=== PATIENT | male | born 1950 | race Caucasian/White ===

== ENCOUNTER → 2016-11-07 | Outpatient (CLI) | payer MEDICARE, BC ==
[2015-08-25 14:27] VITALS: BP 138/75
[~2016-11-07] MED LIST: FAMO40TA4 PO; FLUT12AE IH; FLUT16SP NS; IPRA3AMP IH; OMEG500C3 PO; PROVENTIL HFA6.7 GM IH; TAMS0.4C2 PO; UBID100C12 PO; VITA10004 PO
--- NOTE | 2016-11-08 10:30 | SLEEP ---
DATE OF STUDY: 11/07/2016 ATTENDING PHYSICIAN: Dr. Mims. The patient is 65 years old who weighs 190 pounds with a BMI of 28. The patient's [place] score was 7. A split night study was performed at [facility]. During the night study, the patient spent 424 minutes in bed and slept for 370 minutes with a sleep efficiency of 87%. Sleep latency was 5 minutes with a REM latency of 121 minutes. Overall, sleep architecture showed increased stage I and stage II sleep, normal slow wave and reduced REM sleep. During the initial diagnostic portion of the study, the patient slept for 157 minutes. During this time, there were no obstructive mixed or central apneas. There were 45 hypopneas. The patient's apnea hypopnea index was 17 per hour. Supine index of 2 per hour and REM index of 36 per hour. Review of nocturnal oximetry study revealed that the patient's oxygen saturations remained above 88% throughout with the lowest of 85%. EKG monitoring revealed no sustained arrhythmias. Normal sinus rhythm. PLMS were not seen. The patient met the criteria for CPAP initiation. It was started at 5 cm of water and titrated up to 9 cm of water. At the final pressure, the patient had 71 minutes of sleep. AHI was reduced to 1 per hour. The patient had supine as well as REM sleep. Oxygen saturation remained above 90%. The patient used a small sized nasal mask. IMPRESSION: 1. Moderate sleep apnea-hypopnea syndrome with worsening during REM sleep. Total AHI 17 per hour with a REM AHI of 36 per hour. 2. Mild nocturnal hypoxia secondary to obstructive sleep apnea, but resolved with CPAP. 3. No clinically significant periodic limb movements of sleep. RECOMMENDATIONS: 1. CPAP at 9 cm water completely eliminated the patient's sleep apnea and should be used on a nightly basis. 2. Follow up in 4-6 weeks to assess compliance with CPAP and to document clinical improvement. 3. Weight loss is advised. 4. Avoid [employer] depressants. 5. Caution regarding driving until symptoms of sleep apnea resolve with the use of CPAP. JATIN LEMOS MD DR: DAVID/emma JOB#: [id number] / [id number] Spencer Bravo
== END | disposition home or self-care (01) ==
LOC: SLPLAB 18:23
PROVIDERS: ATTEND Family Medicine
DX: G47.33 Obstructive sleep apnea (adult) (pediatric) (principal)
CPT/HCPCS: 95810

== ENCOUNTER 2019-01-20 02:30 | Inpatient (IN) | payer MEDICARE ==
[~2019-01-20] VITALS: Ht 182.9 cm; Wt 86.2 kg
[~2019-01-20 02:30] MED LIST changes: +ALBU2.5V8 IH; -IPRA3AMP IH; +IPRA3AMP29 IH; -PROVENTIL HFA6.7 GM IH; -UBID100C12 PO; +UBID100C40 PO; +VITA100022 PO; -VITA10004 PO
[2019-01-20 03:10] LABS: BASO % 0 % (0-3); EOS % 0 % (0-3); HEMATOCRIT 42.9 % (39.0-53.0); HEMOGLOBIN 14.4 g/dL (13.0-17.5); LYMPH # 0.8 x10^3/uL (1.0-4.8); LYMPH % 6 % (24-48); MEAN CORPUSCULAR HEMOGLOBIN 32 pg (25-35); MEAN CORPUSCULAR HGB CONC 34 g/dL (31-37); MEAN CORPUSCULAR VOLUME 95 fL (79-100); MONO # 1.1 x10^3/uL (0.0-1.1); MONO % 8 % (0-9); NEUT # 11.4 x10^3uL (1.8-7.7); NEUT % 85 % (31-73); PLATELET COUNT 170 x10^3/uL (140-400); RED BLOOD COUNT 4.53 x10^6/uL (4.30-5.70); WHITE BLOOD COUNT 13.4 x10^3/uL (4.0-11.0)
[2019-01-20] MEDS ORDERED: IV NORMAL SALINE 1000ML BAG 1,000 ML IV ONE ×2 (03:15→04:00)
[2019-01-20 03:23] LABS: PROTHROMBIN TIME PATIENT 14.9 SEC (11.7-14.0)
[2019-01-20 03:28] LABS: CALCIUM 8.6 mg/dL (8.5-10.1); CREATININE 1.3 mg/dL (0.7-1.3); GFR 54.7; POTASSIUM 3.5 mmol/L (3.5-5.1)
[2019-01-20 03:31] LABS: ALBUMIN 3.7 g/dL (3.4-5.0); ALBUMIN/GLOBULIN RATIO 0.9 (1.0-1.7); MAGNESIUM 2.1 mg/dL (1.8-2.4); TOTAL BILIRUBIN 0.4 mg/dL (0.2-1.0); TOTAL PROTEIN 7.7 g/dL (6.4-8.2)
[2019-01-20] MEDS ORDERED: fentaNYL PF VIAL 100 MCG/2 ML VIAL IV PRN (03:45)
[2019-01-20] MEDS ORDERED: cefTRIAXone IV Push 1 GM VIAL. IVP ONE (04:00)
[2019-01-20] MEDS ORDERED: DOXYCYCLINE HYCLATE 100 MG in IV DEXTROSE 5% 100ML 100 ML IV ONE (04:00)
[2019-01-20] MEDS ORDERED: ACETAMINOPHEN 500 MG TABLET PO ONE (04:00)
--- NOTE | 2019-01-20 04:09 | PHYS DOC ---
Past Medical History Past Medical History: Asthma Additional Past Medical Histor: EARLY ONSET DEMENTIA Past Surgical History: Other Additional Past Surgical Histo: PARTIAL THYROID Alcohol Use: Occasionally Additional Information: PT. STATES HE DRINKS EVERY OTHER DAY Drug Use: None Adult General Chief Complaint Chief Complaint: DIZZY/LIGHT HEADED HPI HPI Patient is a febrile 68 year old male who presents with dizziness and weakness with a fall. His reports she heard him wake up around 130 am and subsequently heard a loud fall from the patient falling and hitting the bathroom tub. He is unsure if he lost consciousness or not. His states that a large puddle of urine was next to his bed that occurred shortly before his fall. He also reports a feeling of profound weakness. For 10 days the patient was at a [place]iron with friends (*located somewhere in [place] of [place], [place]) in which they were doing water sports, drinking alcohol, and other outdoor activities. The patients then reported that he had found a tick in his righ t groin region and removed it this past sunday (January 18 2019). The pt states the tick was large and black in color when he removed it successfully. The next day (friday 01/19) he complained to his of pain at the site of his tick bite. Pt admits to headache and feeling feverish. He denies chest pain, shortness of breath, visual changes, and sick contacts. Review of Systems Review of Systems Constitutional: Admits fever or chills Eyes: Denies change in visual acuity, redness, or eye pain HENT: Denies nasal congestion or sore throat Respiratory: Denies cough or shortness of breath Cardiovascular: No additional information not addressed in HPI GI: Denies abdominal pain, nausea, vomiting, bloody stools or diarrhea : Denies dysuria or hematuria Musculoskeletal: Denies back pain. Admits to profound weakness Integument: Admits skin lesion in right groin at location of the tick bite. Neurologic: Admits headache, Denies focal weakness or sensory changes [] Endocrine: Denies polyuria or polydipsia [] All other systems were reviewed and found to be within normal limits, except as documented in this note. Current Medications Current Medications Current Medications Medications (Trade) Dose Ordered Sig/Do Start Time Stop Time Status Last Admin Dose Admin Acetaminophen (Tylenol) 1,000 mg 1X ONCE 01/20/19 04:00 01/20/19 04:01 DC 01/20/19 04:09 1,000 MG Ceftriaxone Sodium (Rocephin) 1 gm 1X ONCE 01/20/19 04:00 01/20/19 04:01 DC 01/20/19 04:13 1 GM Doxycycline Hyclate 100 mg/ Dextrose 100 ml @ 50 mls/hr 1X ONCE 01/20/19 04:00 01/20/19 05:59 01/20/19 04:14 50 MLS/HR Fentanyl Citrate (Fentanyl 2ml Vial) 50 mcg PRN Q1HR PRN 01/20/19 03:45 01/21/19 03:44 Sodium Chloride 500 ml @ 500 mls/hr 1X ONCE 01/20/19 04:30 01/20/19 05:29 01/20/19 04:26 500 MLS/HR Vancomycin HCl (Vanco Per Pharmacy) 1 each PRN DAILY PRN 01/20/19 03:45 Allergies Allergies Allergies Coded Allergies Type Severity Reaction Last Updated Verified aspirin Allergy Severe Hives 08/25/15 Yes ibuprofen Allergy Severe Hives 08/25/15 Yes Physical Exam Physical Exam Constitutional: Well developed, well nourished, mild distress, toxic appearing HENT: Normocephalic, atraumatic, bilateral external ears normal, oropharynx moist, no oral exudates, nose normal. Eyes: PERRLA, EOMI, conjunctiva normal, no discharge. Neck: Normal range of motion, no tenderness, supple, no stridor. Cardiovascular:Heart rate regular rhythm. No definite murmur Lungs & Thorax: Bilateral breath sounds clear to auscultation Abdomen: Bowel sounds normal, soft, no tenderness, no masses, no pulsatile ma sses. [ Skin: Warm, dry. Erythematous, indurated lesion at site of tick bite with streaking. Tender, 3-4 cm lymphadenopathy in the right inguinal region. No signs of rash on palms, soles, wrists or ankles. Back: No tenderness, no CVA tenderness. Extremities: No tenderness, no cyanosis, no clubbing, ROM intact, no edema. [ Neurologic: Alert and oriented X 3, normal motor function, normal sensory function, no focal deficits noted. CN II-XII grossly intact b/l. Current Patient Data Vital Signs Vital Signs Date Time Temp Pulse Resp B/P (MAP) Pulse Ox O2 Delivery O2 Flow Rate FiO2 01/20/19 02:30 99.9 111 16 141/74 (96) 92 Room Air 99.9 Lab Values Laboratory Tests Test 01/20/19 02:49 01/20/19 02:50 Glucose (Fingerstick) 160 mg/dL (70-99) H White Blood Count 13.4 x10^3/uL (4.0-11.0) H Red Blood Count 4.53 x10^6/uL (4.30-5.70) Hemoglobin 14.4 g/dL (13.0-17.5) Hematocrit 42.9 % (39.0-53.0) Mean Corpuscular Volume 95 fL (79-100) Mean Corpuscular Hemoglobin 32 pg (25-35) Mean Corpuscular Hemoglobin Concent 34 g/dL (31-37) Red Cell Distribution Width 15.0 % (11.5-14.5) H Platelet Count 170 x10^3/uL (140-400) Neutrophils (%) (Auto) 85 % (31-73) H Lymphocytes (%) (Auto) 6 % (24-48) L Monocytes (%) (Auto) 8 % (0-9) Eosinophils (%) (Auto) 0 % (0-3) Basophils (%) (Auto) 0 % (0-3) Neutrophils # (Auto) 11.4 x10^3uL (1.8-7.7) H Lymphocytes # (Auto) 0.8 x10^3/uL (1.0-4.8) L Monocytes # (Auto) 1.1 x10^3/uL (0.0-1.1) Eosinophils # (Auto) 0.0 x10^3/uL (0.0-0.7) Basophils # (Auto) 0.0 x10^3/uL (0.0-0.2) Platelet Estimate Pending Prothrombin Time 14.9 SEC (11.7-14.0) H Prothrombin Time INR 1.2 (0.8-1.1) H Sodium Level 139 mmol/L (136-145) Potassium Level 3.5 mmol/L (3.5-5.1) Chloride Level 102 mmol/L (98-107) Carbon Dioxide Level 27 mmol/L (21-32) Anion Gap 10 (6-14) Blood Urea Nitrogen 19 mg/dL (8-26) Creatinine 1.3 mg/dL (0.7-1.3) Estimated GFR (Cockcroft-Gault) 54.7 BUN/Creatinine Ratio 15 (6-20) Glucose Level 148 mg/dL (70-99) H Lactic Acid Level 2.5 mmol/L (0.4-2.0) H Calcium Level 8.6 mg/dL (8.5-10.1) Magnesium Level 2.1 mg/dL (1.8-2.4) Total Bilirubin 0.4 mg/dL (0.2-1.0) Aspartate Amino Transferase (AST) 33 U/L (15-37) Alanine Aminotransferase (ALT) 32 U/L (16-63) Alkaline Phosphatase 57 U/L (46-116) Creatine Kinase 566 U/L (39-308) H Troponin I Quantitative < 0.017 ng/mL (0.000-0.055) MS-Vpw-G-Type Natriuretic Peptide 260 pg/mL (0-124) H Total Protein 7.7 g/dL (6.4-8.2) Albumin 3.7 g/dL (3.4-5.0) Albumin/Globulin Ratio 0.9 (1.0-1.7) L Lipase 69 U/L (73-393) L Ethyl Alcohol Level < 10 mg/dL (0-10) Laboratory Tests 01/20/19 02:50 Laboratory Tests 01/20/19 02:50 EKG EKG []Sinus rhythm rate of 110 no acute ischemic changes noted interpreted by me time of encounter Radiology/Procedures Radiology/Procedures [] Impressions: IMPRESSION: 1. No acute intracranial hemorrhage. 2. Scattered regions of low attenuation within the white matter. Non-specific in nature but frequently secondary to chronic small vessel ischemic disease. 3. Prominence of ventricles and sulci which is frequently secondary to age related volume loss. Another possible cause would include normal pressure hydrocephalus. 4. Partial opacification of paranasal sinuses which could be from congestion or sinusitis. Electronically signed by: Christ Escobar MD (01/20/2019 4:21 AM) [facility] Course & Med Decision Making Course & Med Decision Making Pertinent Labs and Imaging studies reviewed. (See chart for details) [Pt is a febrile 68 year old male presenting with dizziness, weakness, and a mechanical fall. He states he removed a large tick in his right groin on Sunday after spending 10 days camping/boating [place] a [place], [place]. There is an erythematous, indurated lesion at the tick bite location with 3- 4 cm tender lymphadenopathy in the right inguinal region. He is AAOx3, has no focal motor deficits, and cranial nerves II-XII are grossly intact b/l. He has signs of dehydration with dry, cracked lips and mouth which could have contributed to his dizziness that led to a fall. Given his recent camping trip, fever, headache weakness and the indurated lesion w/ tender lymphadenopathy a the site of his tick bite, a tick-borne illness seems most likely. However, he is unsure if he lost consciousness or hit his head and he reports a headache. A CT scan w/out contrast was ordered to r/o an acute intracranial pathology.Doxycycline and ceftriaxone were prescribed and given to cover the most common tick-born illnesses until blood cultures return.] Lactic acid was mildly elevated we'll refer repeatedly or the fluid sepsis fluid bolus blood pressure remained stable in the emergency room. Neck is supple patient is alert doubt meningitis. Dragon Disclaimer Dragon Disclaimer This electronic medical record was generated, in whole or in part, using a voice recognition dictation system. Departure Departure Impression: Primary Impression: Sepsis Additional Impression: Tick bite Disposition: ADMITTED INPATIENT Admitting Physician: SHELBI Condition: STABLE Referrals: TANYA GARCIA (PCP) Problem Qualifiers GERRY DC MD Jan 20, 2019 04:09
--- NOTE | 2019-01-20 04:23 | RAD ---
INDICATION: Altered mental status COMPARISON: None. TECHNIQUE: Axial CT images obtained through the head without intravenous contrast. One or more of the following individualized dose reduction techniques were utilized for this examination: 1. Automated exposure control; 2. Adjustment of the mA and/or kV according to patient size; 3. Use of iterative reconstruction technique. FINDINGS: No intracranial hemorrhage. No midline shift. Basal cisterns patents. Ventricles and sulci are globally prominent. No acute osseous abnormality. Opacification of frontal sinus as well as portion of ethmoid sinus. Small amount of fluid in the right maxillary sinus with postoperative changes to the medial wall of the maxillary sinuses as well as the ethmoid air cells. Scattered foci of low attenuation within the white matter. IMPRESSION: 1. No acute intracranial hemorrhage. 2. Scattered regions of low attenuation within the white matter. Non-specific in nature but frequently secondary to chronic small vessel ischemic disease. 3. Prominence of ventricles and sulci which is frequently secondary to age related volume loss. Another possible cause would include normal pressure hydrocephalus. 4. Partial opacification of paranasal sinuses which could be from congestion or sinusitis. Electronically signed by: Christ Escobar MD (01/20/2019 4:21 AM) [facility]
[2019-01-20] MEDS ORDERED: IV NORMAL SALINE 500ML BAG 500 ML IV ONE (04:30)
[2019-01-20] MEDS ORDERED: VANCOMYCIN 2 GM in IV NORMAL SALINE 500ML BAG 500 ML IV ONE (05:00)
[2019-01-20] MEDS ORDERED: OMEP40CA5 PO (05:47)
[2019-01-20] MEDS ORDERED: LEVO25TA4 PO (05:47)
[2019-01-20] MEDS ORDERED: TIOT18CA IH (05:47)
[2019-01-20] MEDS ORDERED: BUDE10.22 IH (05:47)
[2019-01-20] MEDS ORDERED: ASPI325T11 PO (05:47)
[2019-01-20] MEDS: IV NORMAL SALINE 1000ML BAG 1,000 ML IV SCH ×2 (06:16→19:14)
[2019-01-20 06:35] LABS: % BANDS 4 % (0-9); % LYMPHS 8 % (24-48); % MONOS 7 % (0-10); % SEGS 81 % (35-66); PLT ESTIMATE ADEQUATE (ADEQUATE)
[2019-01-20] MEDS: VANCOMYCIN PER PHARMACY MC PRN ×2 (06:42→13:39)
--- NOTE | 2019-01-20 06:43 | NUR ---
Pharmacy Vancomycin Dosing Note S:Consulted to monitor and dose vancomycin started 01/20/19. O:VITO VEGA is a 68 year old M with Sepsis TICK BITE . Height: 6 feet, 0 inches Weight: 81.270057 kg [place] Body Weight: 77.60 Adjusted Body Weight: 79.20 Dosing Weight: Actual Other Antibiotics: LABS: Last BUN: 19 Last Creatinine: 1.3 Creatinine Clearance: 60 mL/min Last WBC: 13.4 Last Procalcitonin: Tmax (past 24 hours): Microbiology: I/O: Drug Levels: Last level: on at Last dose given 01/20/19 at 0630 Vancomycin Dosing: Loading Dose: 2000 mg x1 Dosing Weight: Actual Target Trough: 15-20 A: Based on: WT AND CRCL P: 1. Begin Vancomycin 1250 mg IV q12h 2. Follow up Trough level on 01/21/19 at 1830 3. Pharmacy will continue to monitor, follow and adjust therapy as needed. STEFF DE LUNA RPH, 01/20/1944 Signed: 01/20/19 at 0643 by STEFF DE LUNA RPH PHA
[2019-01-20 07:00] VITALS: BP 133/68
--- NOTE | 2019-01-20 07:47 | NUR ---
Attempt to call in ID consult to Dr Malhotra, received voice message for Nathan to leave appropriate information, but the 'mailbox was full' Margarita rodriguez, the day rn, notified.
--- NOTE | 2019-01-20 08:15 | RAD ---
PORTABLE CHEST 1V History: Altered mental status, fever, weakness Comparison: June 26, 2011 Findings: Single view of the chest is submitted. There is some patchy airspace opacity at the bilateral lung bases, more linear appearance on right. There is no pneumothorax. No significant pleural fluid is identified. Pericardial cardiac silhouette is similar. Impression: 1. There is some patchy bibasilar airspace opacity which may be due to mild atelectasis although infiltrate not excluded. Electronically signed by: Johnie Lagunas MD (01/20/2019 8:13 AM) [id number]
--- NOTE | 2019-01-20 08:57 | EKG ---
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
[2019-01-20] MEDS ORDERED: MONT10TA49 PO (10:46)
[2019-01-20] MEDS ORDERED: FLUT9.9S NS (10:46)
[2019-01-20 10:56] VITALS: BP 129/64
--- NOTE | 2019-01-20 12:07 | PDOC1 ---
History and Physical Date of Admission Date of Admission DATE: 01/20/19 TIME: 12:06 Identification/Chief Complaint Chief Complaint Fever and chills Source Source: Patient History of Present Illness History of Present Illness Mr Leonard is a 58 yo male w/ PMHx asthma who presents with dizziness and weakness with a fall. His reports she heard him wake up around 130 am and subsequently heard a loud fall from the patient falling and hitting the bathroom tub. He is unsure if he lost consciousness or not. His states that a large puddle of urine was next to his bed that occurred shortly before his fall. He also reports a feeling of profound weakness which is really his only complaint with me. All other history is through [facility]. For 10 days (01/08-01/17) the patient was at [facility] with friends drinking alcohol and outdoor recreation activities. The patients and daughter noted, and he confirmed that he had found a tick in his right groin region and removed it this past Sunday (January 18 2019). He notes the tick was large and black in color and engorged when it burst and he feels in the shower he removed it successfully and washed the remainder down the drain. The next day (Friday 01/19) he complained to his of pain at the site of his tick bite with associated fever, chills, body aches and severe fatigue with a mild headache and confusion. He denies chest pain, shortness of breath, visual changes, and sick contacts. He said his and friend told him he was not acting himself. In ED he was febrile with elevated WBC 13.4K with lactic 2.5. Head CT showed no acute intracranial abnormality. Cultures have been ordered. He was given a one-time dose of doxycycline and ceftriaxone and vancomycin. He says he stubbed his left toes on a ladder on a pontoon boat and has some pain there as well. Past Medical History Cardiovascular: No pertinent hx Pulmonary: Asthma GI: No pertinent hx Heme/Onc: No pertinent hx Hepatobiliary: No pertinent hx Psych: No pertinent hx Rheumatologic: No pertinent hx Infectious disease: No pertinent hx ENT: No pertinent hx Renal/: No pertinent hx Endocrine: No pertinent hx Dermatology: No pertinent hx Past Surgical History Past Surgical History: Other (Thyroidectomy, partial. Nasal polypectomy) Family History Family History: Hypertension Social History Smoke: No ALCOHOL: heavy Drugs: None Current Medications Current Medications Current Medications Sodium Chloride 1,000 ml @ 1,000 mls/hr 1X ONCE IV Last administered on 01/20/19at 03:06; Start 01/20/19 at 03:15; Stop 01/20/19 at 04:14; Status DC Ceftriaxone Sodium (Rocephin) 1 gm 1X ONCE IVP Last administered on 01/20/19at 04:13; Start 01/20/19 at 04:00; Stop 01/20/19 at 04:01; Status DC Doxycycline Hyclate 100 mg/ Dextrose 100 ml @ 50 mls/hr 1X ONCE IV Last administered on 01/20/19at 04:14; Start 01/20/19 at 04:00; Stop 01/20/19 at 05:59; Status DC Vancomycin HCl (Vanco Per Pharmacy) 1 each PRN DAILY PRN MC SEE COMMENTS Last administered on 01/20/19at 06:42; Start 01/20/19 at 03:45 Sodium Chloride 1,000 ml @ 1,000 mls/hr 1X ONCE IV Last administered on 01/20/19at 04:05; Start 01/20/19 at 04:00; Stop 01/20/19 at 04:59; Status DC Acetaminophen (Tylenol) 1,000 mg 1X ONCE PO Last administered on 01/20/19at 04:09; Start 01/20/19 at 04:00; Stop 01/20/19 at 04:01; Status DC Fentanyl Citrate (Fentanyl 2ml Vial) 50 mcg PRN Q1HR PRN IV SEVERE PAIN 7-10; Start 01/20/19 at 03:45; Stop 01/21/19 at 03:44 Sodium Chloride 1,000 ml @ 100 mls/hr Q10H IV Last administered on 01/20/19at 06:16; Start 01/20/19 at 05:00; Stop 01/21/19 at 04:59 Vancomycin HCl 2 gm/Sodium Chloride 500 ml @ 250 mls/hr 1X ONCE IV Last administered on 01/20/19at 06:17; Start 01/20/19 at 05:00; Stop 01/20/19 at 06:59; Status DC Sodium Chloride 500 ml @ 500 mls/hr 1X ONCE IV Last administered on 01/20/19at 04:26; Start 01/20/19 at 04:30; Stop 01/20/19 at 05:29; Status DC Vancomycin HCl 1.25 gm/Sodium Chloride 250 ml @ 167 mls/hr Q12H IV ; Start 01/20/19 at 19:00 Vancomycin HCl (Vancomycin Trough Level) 1 each 1X ONCE MC ; Start 01/21/19 at 18:30; Stop 01/21/19 at 18:31 Active Scripts Active Reported Montelukast Sodium Tablet (Montelukast Sodium) 10 Mg Tablet 10 Mg PO HS Flonase Allergy Relief (Fluticasone Propionate) 9.9 Ml [place].susp 2 Sprays NS DAILY Aspirin Ec (Aspirin) 325 Mg Tablet.dr 1 Tab PO DAILY Levothyroxine Sodium 25 Mcg Tablet 1 Tab PO DAILY Spiriva (Tiotropium [place]) 18 Mcg Cap.w.dev 1 Cap IH DAILY Symbicort 80-4.5 Mcg Inhaler (Budesonide/Formoterol Fumarate) 10.2 Gm Hfa.aer.ad 2 Puff IH BID Omeprazole 40 Mg Capsule.dr 1 Cap PO DAILY Vitamin E (Vitamin E Acetate) 1,000 Unit Capsule 1,000 Unit PO Co Q-10 (Ubidecarenone) 100 Mg Capsule 100 Mg PO Fish Oil ([place]-3 Fatty Acids) 500 Mg Capsule 1,000 Mg PO Tamsulosin Hcl 0.4 Mg Cap.er.24h 1 Cap PO DAILY Duoneb 0.5-3(2.5) Mg/3 Ml (Albuterol/Ipratropium) 3 Ml Ampul.neb 3 Ml IH Allergies Allergies: Coded Allergies: aspirin (Verified Allergy, Severe, Hives, 08/25/15) SWELLING ibuprofen (Verified Allergy, Severe, Hives, 08/25/15) SWELLING ROS General: YES: Chills, Fatigue, Malaise; No: Night Sweats, Appetite, Other PSYCHOLOGICAL ROS: YES: Disorientation; No: Anxiety, Behavioral Disorder, Concentration difficultie, Decreased libido, Depression, Hallucinations, Hostility, Irritablity, Memory difficulties, Mood Swings, Obsessive thoughts, Physical abuse, Sexual abuse, Sleep disturbances, Suicidal ideation, Other Eyes: No Blurry vision, No Decreased vision, No Double vision, No Dry eyes, No Excessive tearing, No Eye Pain, No Itchy Eyes, No Loss of vision, No Photophobia, No Scotomata, No Uses contacts, No Uses glasses, No Other HEENT: YES: Heacaches; No: Visual Changes, Hearing change, Nasal congestion, Nasal discharge, Oral lesions, Sinus pain, Sore Throat, Epistaxis, Sneezing, Snoring, Tinnitus, Vertigo, Vocal changes, Other ALLERGY AND IMMUNOLOGY: No: Hives, Insect Bite Sensitivity, Itchy/Watery Eyes, Nasal Congestion, Post Nasal Drip, Seasonal Allergies, Other Hematological and Lymphatic: No: Bleeding Problems, Blood Clots, Blood Transfusions, Brusing, Night Sweats, Pallor, Swollen Lymph Nodes, Other ENDOCRINE: No: Breast Changes, Galactorrhea, Hair Pattern Changes, Hot Flashes, Malaise/lethargy, Mood Swings, Palpitations, Polydipsia/polyuria, Skin Changes, Temperature Intolerance, Unexpected Weight Changes, Other Breast: No New/Changing Breast Lumps, No Nipple changes, No Nipple discharge, No Other Respiratory: YES: Shortness of breath; No: Cough, Hemoptysis, Orthopnea, Pleuritic Pain, SOB with excertion, Sputum Changes, Stridor, Tachypnea, Wheezing, Other Cardiovascular: No Chest Pain, No Palpitations, No Orthopnea, No Paroxysmal Noc. Dyspnea, No Edema, No Lt Headedness, No Other Gastrointestinal: Yes Nausea; No Vomiting, No Abdominal Pain, No Diarrhea, No Constipation, No Melena, No Hematochezia, No Other Genitourinary: YES Incontinence; No Dysuria, No Frequency, No Hematuria, No Retention, No Discharge, No Urgency, No Pain, No Flank Pain, No Other, No , No , No , No , No , No , No Musculoskeletal: No Gait Disturbance, No Joint Pain, No Joint Stiffness, No Joint Swelling, No Muscle Pain, No Muscular Weakness, No Pain In:, No Swelling In:, No Other Neurological: Yes Bowel/Bladder ControlChng, Yes Confusion, Yes Dizziness, Yes Gait Disturbance; No Behavorial Changes, No Headaches, No Impaired Coord/balance, No Memory Loss, No Numbness/Tingling, No Seizures, No Speech Problems, No Tremors, No Visual Changes, No Weakness, No Other Skin: Yes Rash; No Dry Skin, No Eczema, No Hair Changes, No Lumps, No Mole Changes, No Mottling, No Nail Changes, No Pruritus, No Skin Lesion Changes, No Other, No Acne Physical Exam General: Alert, Cooperative, No acute distress HEENT: Atraumatic, PERRLA, EOMI, Mucous membr. moist/pink Lungs: Clear to auscultation, Normal air movement Heart: S1S2, RRR, no gallops, no murmurs Abdomen: Normal bowel sounds, Soft, No tenderness, No hepatosplenomegaly, No masses Rectal Exam: not examined Extremities: No clubbing, No cyanosis, No edema, Normal pulses, No tenderness/swelling Skin: Other (Right groin with fluctuant mass with surrounding erythema. Left toes black and blue) Neuro: Normal tone, Sensation intact, Cranial nerves 3-12 NL, Reflexes 2+, Other (Unsteady gait) Psych/Mental Status: Mood NL Vitals Vitals Vital Signs Date Time Temp Pulse Resp B/P (MAP) Pulse Ox O2 Delivery O2 Flow Rate FiO2 01/20/19 10:56 99.0 105 18 129/64 (85) 92 Room Air 99.0 Labs Labs Laboratory Tests Test 01/20/19 02:49 01/20/19 02:50 01/20/19 08:55 Glucose (Fingerstick) 160 mg/dL (70-99) White Blood Count 13.4 x10^3/uL (4.0-11.0) Red Blood Count 4.53 x10^6/uL (4.30-5.70) Hemoglobin 14.4 g/dL (13.0-17.5) Hematocrit 42.9 % (39.0-53.0) Mean Corpuscular Volume 95 fL (79-100) Mean Corpuscular Hemoglobin 32 pg (25-35) Mean Corpuscular Hemoglobin Concent 34 g/dL (31-37) Red Cell Distribution Width 15.0 % (11.5-14.5) Platelet Count 170 x10^3/uL (140-400) Neutrophils (%) (Auto) 85 % (31-73) Lymphocytes (%) (Auto) 6 % (24-48) Monocytes (%) (Auto) 8 % (0-9) Eosinophils (%) (Auto) 0 % (0-3) Basophils (%) (Auto) 0 % (0-3) Neutrophils # (Auto) 11.4 x10^3uL (1.8-7.7) Lymphocytes # (Auto) 0.8 x10^3/uL (1.0-4.8) Monocytes # (Auto) 1.1 x10^3/uL (0.0-1.1) Eosinophils # (Auto) 0.0 x10^3/uL (0.0-0.7) Basophils # (Auto) 0.0 x10^3/uL (0.0-0.2) Segmented Neutrophils % 81 % (35-66) Band Neutrophils % 4 % (0-9) Lymphocytes % 8 % (24-48) Monocytes % 7 % (0-10) Platelet Estimate Adequate (ADEQUATE) Prothrombin Time 14.9 SEC (11.7-14.0) Prothromb Time International Ratio 1.2 (0.8-1.1) Sodium Level 139 mmol/L (136-145) Potassium Level 3.5 mmol/L (3.5-5.1) Chloride Level 102 mmol/L (98-107) Carbon Dioxide Level 27 mmol/L (21-32) Anion Gap 10 (6-14) Blood Urea Nitrogen 19 mg/dL (8-26) Creatinine 1.3 mg/dL (0.7-1.3) Estimated GFR (Cockcroft-Gault) 54.7 BUN/Creatinine Ratio 15 (6-20) Glucose Level 148 mg/dL (70-99) Lactic Acid Level 2.5 mmol/L (0.4-2.0) 1.8 mmol/L (0.4-2.0) Calcium Level 8.6 mg/dL (8.5-10.1) Magnesium Level 2.1 mg/dL (1.8-2.4) Total Bilirubin 0.4 mg/dL (0.2-1.0) Aspartate Amino Transf (AST/SGOT) 33 U/L (15-37) Alanine Aminotransferase (ALT/SGPT) 32 U/L (16-63) Alkaline Phosphatase 57 U/L (46-116) Creatine Kinase 566 U/L (39-308) Troponin I Quantitative < 0.017 ng/mL (0.000-0.055) UN-Ttv-O-Type Natriuretic Peptide 260 pg/mL (0-124) Total Protein 7.7 g/dL (6.4-8.2) Albumin 3.7 g/dL (3.4-5.0) Albumin/Globulin Ratio 0.9 (1.0-1.7) Lipase 69 U/L (73-393) Ethyl Alcohol Level < 10 mg/dL (0-10) Laboratory Tests Test 01/20/19 02:49 01/20/19 02:50 01/20/19 08:55 Glucose (Fingerstick) 160 mg/dL (70-99) White Blood Count 13.4 x10^3/uL (4.0-11.0) Red Blood Count 4.53 x10^6/uL (4.30-5.70) Hemoglobin 14.4 g/dL (13.0-17.5) Hematocrit 42.9 % (39.0-53.0) Mean Corpuscular Volume 95 fL (79-100) Mean Corpuscular Hemoglobin 32 pg (25-35) Mean Corpuscular Hemoglobin Concent 34 g/dL (31-37) Red Cell Distribution Width 15.0 % (11.5-14.5) Platelet Count 170 x10^3/uL (140-400) Neutrophils (%) (Auto) 85 % (31-73) Lymphocytes (%) (Auto) 6 % (24-48) Monocytes (%) (Auto) 8 % (0-9) Eosinophils (%) (Auto) 0 % (0-3) Basophils (%) (Auto) 0 % (0-3) Neutrophils # (Auto) 11.4 x10^3uL (1.8-7.7) Lymphocytes # (Auto) 0.8 x10^3/uL (1.0-4.8) Monocytes # (Auto) 1.1 x10^3/uL (0.0-1.1) Eosinophils # (Auto) 0.0 x10^3/uL (0.0-0.7) Basophils # (Auto) 0.0 x10^3/uL (0.0-0.2) Segmented Neutrophils % 81 % (35-66) Band Neutrophils % 4 % (0-9) Lymphocytes % 8 % (24-48) Monocytes % 7 % (0-10) Platelet Estimate Adequate (ADEQUATE) Prothrombin Time 14.9 SEC (11.7-14.0) Prothromb Time International Ratio 1.2 (0.8-1.1) Sodium Level 139 mmol/L (136-145) Potassium Level 3.5 mmol/L (3.5-5.1) Chloride Level 102 mmol/L (98-107) Carbon Dioxide Level 27 mmol/L (21-32) Anion Gap 10 (6-14) Blood Urea Nitrogen 19 mg/dL (8-26) Creatinine 1.3 mg/dL (0.7-1.3) Estimated GFR (Cockcroft-Gault) 54.7 BUN/Creatinine Ratio 15 (6-20) Glucose Level 148 mg/dL (70-99) Lactic Acid Level 2.5 mmol/L (0.4-2.0) 1.8 mmol/L (0.4-2.0) Calcium Level 8.6 mg/dL (8.5-10.1) Magnesium Level 2.1 mg/dL (1.8-2.4) Total Bilirubin 0.4 mg/dL (0.2-1.0) Aspartate Amino Transf (AST/SGOT) 33 U/L (15-37) Alanine Aminotransferase (ALT/SGPT) 32 U/L (16-63) Alkaline Phosphatase 57 U/L (46-116) Creatine Kinase 566 U/L (39-308) Troponin I Quantitative < 0.017 ng/mL (0.000-0.055) KJ-Gsz-X-Type Natriuretic Peptide 260 pg/mL (0-124) Total Protein 7.7 g/dL (6.4-8.2) Albumin 3.7 g/dL (3.4-5.0) Albumin/Globulin Ratio 0.9 (1.0-1.7) Lipase 69 U/L (73-393) Ethyl Alcohol Level < 10 mg/dL (0-10) Images Images CXR - patchy bibasilar airspace opacities CT Head - 1. No acute intracranial hemorrhage. 2. Scattered regions of low attenuation within the white matter. Non-specific in nature but frequently secondary to chronic small vessel ischemic disease. 3. Prominence of ventricles and sulci which is frequently secondary to age related volume loss. Another possible cause would include normal pressure hydrocephalus. 4. Partial opacification of paranasal sinuses which could be from congestion or sinusitis. VTE Prophylaxis Ordered VTE Prophylaxis Devices: Yes VTE Pharmacological Prophylaxi: No Assessment/Plan Assessment/Plan A/P: Cellulitis and abscess, right groin area - on empiric antibiotics, doxy, rocephin, vancomycin, still with fevers now per nursing staff. Will give tylenol prn. Consult ID Tick bite - uncertain if he completely removed it. We cannot check lyme titers at our facility Sepsis - with leukocytosis, fever, tachycardia and abscess in groin, given empiric IVF and antibiotics Acute encephalopathy - likely related to sepsis, however early onset dementia has been documented in his medical record. Based on CT head and gait instability and urinary incontinence I have consulted neurology to evaluate for Normal Pressure Hydrocephalus Gait instability - was his chief complaint. Will have PT to see Urinary incontinence - possibly part of NPH, will get PVR to assess for bladder or prostate issues Left foot injury - able to bear weight, low suspicion for fracture. Pain control FEN - General diet PPX - SCDs FULL CODE Dispo - inpatient for sepsis from cellulitis and abscess and confusion, likely 2 midnights inpatient SOFY BARKER MD Jan 20, 2019 12:07
[2019-01-20] MEDS: ACETAMINOPHEN 325 MG TABLET. PO PRN ×2 (12:23→18:23)
[2019-01-20] MEDS ORDERED: IPRATRPIUM/ALBUTEROL 0.5/2.5MG 3 ML NEBU. IH SCH (13:00)
--- NOTE | 2019-01-20 13:12 | PDOC ---
Infectious Disease Note Vital Sign Vital Signs Vital Signs Date Time Temp Pulse Resp B/P (MAP) Pulse Ox O2 Delivery O2 Flow Rate FiO2 01/20/19 10:56 99.0 105 18 129/64 (85) 92 Room Air 99.0 Labs Lab Laboratory Tests Test 01/20/19 02:49 01/20/19 02:50 01/20/19 08:55 Glucose (Fingerstick) 160 mg/dL (70-99) White Blood Count 13.4 x10^3/uL (4.0-11.0) Red Blood Count 4.53 x10^6/uL (4.30-5.70) Hemoglobin 14.4 g/dL (13.0-17.5) Hematocrit 42.9 % (39.0-53.0) Mean Corpuscular Volume 95 fL (79-100) Mean Corpuscular Hemoglobin 32 pg (25-35) Mean Corpuscular Hemoglobin Concent 34 g/dL (31-37) Red Cell Distribution Width 15.0 % (11.5-14.5) Platelet Count 170 x10^3/uL (140-400) Neutrophils (%) (Auto) 85 % (31-73) Lymphocytes (%) (Auto) 6 % (24-48) Monocytes (%) (Auto) 8 % (0-9) Eosinophils (%) (Auto) 0 % (0-3) Basophils (%) (Auto) 0 % (0-3) Neutrophils # (Auto) 11.4 x10^3uL (1.8-7.7) Lymphocytes # (Auto) 0.8 x10^3/uL (1.0-4.8) Monocytes # (Auto) 1.1 x10^3/uL (0.0-1.1) Eosinophils # (Auto) 0.0 x10^3/uL (0.0-0.7) Basophils # (Auto) 0.0 x10^3/uL (0.0-0.2) Segmented Neutrophils % 81 % (35-66) Band Neutrophils % 4 % (0-9) Lymphocytes % 8 % (24-48) Monocytes % 7 % (0-10) Platelet Estimate Adequate (ADEQUATE) Prothrombin Time 14.9 SEC (11.7-14.0) Prothromb Time International Ratio 1.2 (0.8-1.1) Sodium Level 139 mmol/L (136-145) Potassium Level 3.5 mmol/L (3.5-5.1) Chloride Level 102 mmol/L (98-107) Carbon Dioxide Level 27 mmol/L (21-32) Anion Gap 10 (6-14) Blood Urea Nitrogen 19 mg/dL (8-26) Creatinine 1.3 mg/dL (0.7-1.3) Estimated GFR (Cockcroft-Gault) 54.7 BUN/Creatinine Ratio 15 (6-20) Glucose Level 148 mg/dL (70-99) Lactic Acid Level 2.5 mmol/L (0.4-2.0) 1.8 mmol/L (0.4-2.0) Calcium Level 8.6 mg/dL (8.5-10.1) Magnesium Level 2.1 mg/dL (1.8-2.4) Total Bilirubin 0.4 mg/dL (0.2-1.0) Aspartate Amino Transf (AST/SGOT) 33 U/L (15-37) Alanine Aminotransferase (ALT/SGPT) 32 U/L (16-63) Alkaline Phosphatase 57 U/L (46-116) Creatine Kinase 566 U/L (39-308) Troponin I Quantitative < 0.017 ng/mL (0.000-0.055) GL-Npj-F-Type Natriuretic Peptide 260 pg/mL (0-124) Total Protein 7.7 g/dL (6.4-8.2) Albumin 3.7 g/dL (3.4-5.0) Albumin/Globulin Ratio 0.9 (1.0-1.7) Lipase 69 U/L (73-393) Ethyl Alcohol Level < 10 mg/dL (0-10) Objective Assessment Cellulitis and abscess right groin area Tick bite -Harjeet Hartley a week ago -has a Farm in [place], [place] and a home on 1/[address] [employer] Leukocytosis Left foot injury - discolored but does not look infected h/o alcohol Asthma fever Plan Plan of Care Continue doxycycline Cont Vanc Add Meropenem given h/o recurrent abx per One time dose Doxy and Rocephin in ER, 01/20 Cultures pending Repeat CBC in am/BMP/CPK in am Ehrlichiosis/rickettsia tests unavailable Head to toe exam - no other ticks seen D/w D/w nursing Thank you [id number] Attending Co-Sign Attending Co-Sign The patient was seen and interviewed as well as examined at the bedside. The chart was reviewed. The case was discussed. Agree with the plan of care. MARIA DE JESUS GLEASON APRN Jan 20, 2019 13:12 DHAVAL ADORNO MD Jan 20, 2019 18:49
--- NOTE | 2019-01-20 13:41 | CONS ---
DATE OF CONSULTATION: 01/20/2019 REQUESTING PHYSICIAN: Dr. Fitzgerald. REASON FOR CONSULTATION: Tick bite and lymphadenopathy. HISTORY OF PRESENT ILLNESS: This patient is a 68-year-old male who about 2 days ago started not to feel very well. He took a shower; he noticed a large swollen tick embedded in his right groin area. He pulled it out and washed it down the drain. His right groin area was red, but he did not think anything of it. The next day he felt worse, weak and fatigued with subjective fevers, chills and body aches. He said his and friend told him he was not acting himself. He was losing his coordination and fell. A week prior, he spent a weekend down at [facility] with several friends. He stayed in the 5th wheel and spent time on a pontoon boat. He is not aware of anyone else getting sick. On admission, he was febrile with elevated white blood cell count of 13,400 and lactic 2.5. Head CT showed no acute intracranial abnormality. Cultures have been ordered. He was given a one-time dose of doxycycline and ceftriaxone and is currently on vancomycin. Since admission, the patient says he is still feeling quite weak. He denies headache or feeling confused. Denies nasal or sinus congestion or sore throat. Denies cough, shortness of air or chest discomfort. He is incontinent of urine and is having to wear a brief. He denies nausea, vomiting or diarrhea. He denies joint pains or rash. He says he stubbed his left toes on a ladder on a pontoon boat. PAST MEDICAL HISTORY: Asthma and early onset dementia. PAST SURGICAL HISTORY: Nasal polyp removal, partial thyroidectomy. FAMILY HISTORY: Noncontributory. SOCIAL HISTORY: The patient is and lives at home. He lives on [address] at [facility] and also has a farm located in [place], [place]. He is a nonsmoker. History of drinking alcohol every day. ALLERGIES: ASPIRIN, IBUPROFEN. MEDICATIONS: Vancomycin, one-time dose of doxycycline, one-time dose of ceftriaxone. Other medications are available and have been reviewed on the SEP. REVIEW OF SYSTEMS: Per HPI, otherwise all other review of systems is negative. PHYSICAL EXAMINATION: VITAL SIGNS: Temperature is 99.0, blood pressure 129/64, heart rate 105, respiratory rate 18, pulse oximetry is 92% on room air. GENERAL: The patient is propped up in bed, awake and weak appearing. HEENT: Pupils equally round, reactive. Normal conjunctivae. Oropharynx pink and moist. NECK: Supple. LUNGS: Clear to auscultation. HEART: S1, S2. ABDOMEN: Soft, nontender with bowel sounds present. EXTREMITIES: No gross edema or cyanosis. His third, fourth, and fifth left toes are swollen and bruised. He wiggles his toes without difficulty. SKIN: Warm without signs of rash. He has about a 3 cm area of redness, induration and a small abscess, right groin, nontender. NEUROLOGIC: Alert, answers questions appropriately, but responses are slow. He moves all extremities and follows commands. LABORATORY DATA: Today, WBC 13.4, hemoglobin 14.4, platelets 170,000, segs 81%, bands 4%. Electrolytes are unremarkable, creatinine 1.3, BUN 19, glucose 148, lactic acid 1.8 from 2.5, total bilirubin 0.4, AST 33, ALT 32, creatine kinase 566. Troponin less than 0.017. BNP 260, albumin 3.7, lipase 69. Urine ethyl alcohol less than 10. Head CT per HPI. Chest x-ray shows some patchy bibasilar airspace opacity. No pneumothorax or significant pleural fluid identified. Urinalysis, blood cultures and urine drug screen are pending. IMPRESSION: 1. Cellulitis and abscess, right groin area. 2. Tick bite. 3. Leukocytosis. 4. Left foot injury. PLAN: Continue the doxycycline. We will repeat the CBC in the morning and follow up on culture results. Local wound care. Continue to monitor. Testing for a tick-borne illness is not available. Thank you, Dr. Fitzgerald, for asking us to participate in this patient's care. Should you have further questions or concerns, please call. DHAVAL ADORNO MD DR: ELMER/emma JOB#: [id number] / [id number]
[2019-01-20] MEDS ORDERED: DOXYCYCLINE HYCLATE 100 MG in IV DEXTROSE 5% 100ML 100 ML IV SCH (14:00)
[2019-01-20 15:00] VITALS: BP 130/69
[2019-01-20] MEDS: IPRATRPIUM/ALBUTEROL 0.5/2.5MG 3 ML NEBU. NEB SCH ×2 (15:43→20:36)
[2019-01-20 15:55] LABS: BILIRUBIN,URINE NEGATIVE (NEG); CLARITY,URINE CLEAR; COLOR,URINE YELLOW; NITRITE,URINE NEGATIVE (NEG); PH,URINE 5.5; PROTEIN,URINE 30 mg/dL (NEG-TRACE); UROBILINOGEN,URINE 0.2 mg/dL (0.2 mg/dL)
[2019-01-20 16:00] LABS: BARBITURATES NEG (NEG); BENZODIAZEPINES NEG (NEG); CANNABINOIDS NEG (NEG); COCAINE NEG (NEG); METHADONE NEG (NEG); OPIATES NEG (NEG); PHENCYCLIDINE NEG (NEG)
[2019-01-20 16:01] LABS: AMPHETAMINE/METHAMPHETAMINE NEG (NEG)
[2019-01-20 16:06] LABS: BACTERIA,URINE 0 /HPF (0-FEW); RBC,URINE 0 /HPF (0-2)
[2019-01-20 16:07] LABS: AMORPHOUS SEDIMENT,UR PRESENT /HPF
--- NOTE | 2019-01-20 16:37 | PDOC2 ---
NEUROLOGY CONSULT Date of Admission Date of Admission DATE: 01/20/19 TIME: 16:28 Reason for Consult Reason for Consult: Altered mental status Referring Physician Referring Physician: Dr. Burns PCP: Dr. Mims Source Source: Caregiver (), Chart review, Patient History of Present Illness History of Present Illness The patient is a 68-year-old right-handed male who spent the past 10 days at the [facility] drinking alcohol heavily and boating. He had a tick bite and developed a tick bite in the right groin. There was redness of the right groin and then swelling. He had weakness, fatigue, fevers, chills, body aches, and has not been acting himself. He had trouble walking yesterday. He came to the emergency depa rtment last night. He denies any prior history of stroke, seizure, or head injury. He says that his primary physician put a diagnosis of mild dementia in his chart, but he does not know where that came from. He is able to cook, clean, drive, and take care of finances without difficulties. His concurs. Past Medical History Pulmonary: Asthma, Pneumonia, Other (sleep apnea) GI: GERD, Hemorrhoids Musculoskeletal: Other (left wrist fracture) Renal/: Benign prostatic enlarg. Endocrine: Hypothyroidism Dermatology: Other (skin cancer removed) Past Surgical History Past Surgical History: Other (vasectomy, thyroid) Family History Family History: Other (dementia) Social History Social History , usually does not drink much Dr. Boyd but drank heavily the past 10 days, quit smoking, retired Current Medications Current Medications Current Medications Sodium Chloride 1,000 ml @ 1,000 mls/hr 1X ONCE IV Last administered on 01/20/19at 03:06; Start 01/20/19 at 03:15; Stop 01/20/19 at 04:14; Status DC Ceftriaxone Sodium (Rocephin) 1 gm 1X ONCE IVP Last administered on 01/20/19at 04:13; Start 01/20/19 at 04:00; Stop 01/20/19 at 04:01; Status DC Doxycycline Hyclate 100 mg/ Dextrose 100 ml @ 50 mls/hr 1X ONCE IV Last administered on 01/20/19at 04:14; Start 01/20/19 at 04:00; Stop 01/20/19 at 05:59; Status DC Vancomycin HCl (Vanco Per Pharmacy) 1 each PRN DAILY PRN MC SEE COMMENTS Last administered on 01/20/19at 13:39; Start 01/20/19 at 03:45 Sodium Chloride 1,000 ml @ 1,000 mls/hr 1X ONCE IV Last administered on 01/20/19at 04:05; Start 01/20/19 at 04:00; Stop 01/20/19 at 04:59; Status DC Acetaminophen (Tylenol) 1,000 mg 1X ONCE PO Last administered on 01/20/19at 04:09; Start 01/20/19 at 04:00; Stop 01/20/19 at 04:01; Status DC Fentanyl Citrate (Fentanyl 2ml Vial) 50 mcg PRN Q1HR PRN IV SEVERE PAIN 7-10; Start 01/20/19 at 03:45; Stop 01/21/19 at 03:44 Sodium Chloride 1,000 ml @ 100 mls/hr Q10H IV Last administered on 01/20/19 06:16; Start 01/20/19 at 05:00; Stop 01/21/19 at 04:59 Vancomycin HCl 2 gm/Sodium Chloride 500 ml @ 250 mls/hr 1X ONCE IV Last administered on 01/20/19 06:17; Start 01/20/19 at 05:00; Stop 01/20/19 at 06:59; Status DC Sodium Chloride 500 ml @ 500 mls/hr 1X ONCE IV Last administered on 01/20/19at 04:26; Start 01/20/19 at 04:30; Stop 01/20/19 at 05:29; Status DC Vancomycin HCl 1.25 gm/Sodium Chloride 250 ml @ 167 mls/hr Q12H IV ; Start at 19:00 Vancomycin HCl (Vancomycin Trough Level) 1 each 1X ONCE MC ; Start 01/21/19 at 18:30; Stop 01/21/19 at 18:31 Acetaminophen (Tylenol) 650 mg PRN Q6HRS PRN PO FEVER > 102 Last administered on 01/20/19at 12:23; Start 01/20/19 at 12:15 Aspirin (Ecotrin) 325 mg DAILY PO ; Start 01/20/19 at 13:00 Albuterol/ Ipratropium (Duoneb) 3 ml QID IH ; Start 01/20/19 at 13:00; Stop 01/20/19 at 13:00; Status DC Montelukast Sodium (Singulair) 10 mg HS PO ; Start 01/20/19 at 21:00 Tamsulosin HCl (Flomax) 0.4 mg DAILY PO ; Start 01/20/19 at 13:00 Non-Formulary Medication (Budesonide/ Formoterol Fumarate (Symbicort 80-4.5 Mcg Inhaler)) 2 puff BID IH ; Start 01/20/19 at 21:00; Stop 01/20/19 at 21:00; Status DC Fluticasone Propionate (Flonase) 2 spray DAILY NS ; Start 01/20/19 at 13:00 Levothyroxine Sodium (Synthroid) 25 mcg DAILY06 PO ; Start 01/20/19 at 13:00 Pantoprazole Sodium (Protonix) 40 mg DAILYAC PO ; Start 01/20/19 at 13:00 Non-Formulary Medication (Tiotropium [place] (Spiriva)) 1 cap DAILY IH ; Start 01/21/19 at 09:00; Stop 01/21/19 at 09:00; Status DC Albuterol/ Ipratropium (Duoneb) 3 ml RTQID NEB Last administered on 01/20/19at 15:43; Start 01/20/19 at 16:00 Budesonide (Pulmicort) 0.5 mg RTBID NEB ; Start 01/20/19 at 20:00 Doxycycline Hyclate 100 mg/ Dextrose 100 ml @ 50 mls/hr Q12HR IV ; Start 01/20/19 at 14:00; Status Cancel Doxycycline Hyclate 100 mg/ Dextrose 100 ml @ 50 mls/hr Q12HR IV ; Start 01/20/19 at 21:00 Active Scripts Active Reported Montelukast Sodium Tablet (Montelukast Sodium) 10 Mg Tablet 10 Mg PO HS Flonase Allergy Relief (Fluticasone Propionate) 9.9 Ml [place].susp 2 Sprays NS DAILY Aspirin Ec (Aspirin) 325 Mg Tablet.dr 1 Tab PO DAILY Levothyroxine Sodium 25 Mcg Tablet 1 Tab PO DAILY Spiriva (Tiotropium [place]) 18 Mcg Cap.w.dev 1 Cap IH DAILY Symbicort 80-4.5 Mcg Inhaler (Budesonide/Formoterol Fumarate) 10.2 Gm Hfa.aer.ad 2 Puff IH BID Omeprazole 40 Mg Capsule.dr 1 Cap PO DAILY Vitamin E (Vitamin E Acetate) 1,000 Unit Capsule 1,000 Unit PO Co Q-10 (Ubidecarenone) 100 Mg Capsule 100 Mg PO Fish Oil ([place]-3 Fatty Acids) 500 Mg Capsule 1,000 Mg PO Tamsulosin Hcl 0.4 Mg Cap.er.24h 1 Cap PO DAILY Duoneb 0.5-3(2.5) Mg/3 Ml (Albuterol/Ipratropium) 3 Ml Ampul.neb 3 Ml IH Allergies Allergies: Coded Allergies: aspirin (Verified Allergy, Severe, Hives, 08/25/15) SWELLING ibuprofen (Verified Allergy, Severe, Hives, 08/25/15) SWELLING ROS Review of System Negative for fever, chills, weight loss, shortness of breath, chest pain, indigestion, hematochezia, melena, and dysuria. Full 14-point review of systems is negative. Physical Exam Physical Examination General: Well-developed, well-nourished white male in no acute distress HEENT: Normocephalic and�atraumatic. �Temporal arteries�pulsatile and nontender.� Neck: Supple without bruit, no meningismus� Musculoskeletal: Stability:�see neurologic. Gait exam:�see neurologic. Tone:�see neurologic.�Strength:�see neurologic.� Neurological: Mental Status:�intact, orientation, memory, attention span/concentration, language, fund of knowledge normal. Cranial Nerves:�Pupils equal and reactive to light, extraocular movements are�intact, visual [place] are full to confrontation. Facial sensation is normal. There is no facial asymmetry. Vestibulo-ocular reflex is intact. Palate elevates and tongue protrudes in midline. All other cranial related problems are negative except as mentioned before.�Reflexes:�2+ and symmetric with flexor plantar responses. Motor:�5/5 strength with normal tone and bulk. Coordination:�Finger-nose finger and slyu-fu-upta testing are normal. Rapid alternating movements and fine finger movements are intact. Gait:�Not tested. Sensory:�Normal pinprick, vibration, light touch, proprioception.� Vitals VITALS Vital Signs Date Time Temp Pulse Resp B/P (MAP) Pulse Ox O2 Delivery O2 Flow Rate FiO2 01/20/19 15:44 95 Room Air 01/20/19 15:00 100.4 91 18 130/69 (89) 100.4 Labs Labs Laboratory Tests Test 01/20/19 02:49 01/20/19 02:50 01/20/19 08:55 01/20/19 15:46 Glucose (Fingerstick) 160 mg/dL (70-99) White Blood Count 13.4 x10^3/uL (4.0-11.0) Red Blood Count 4.53 x10^6/uL (4.30-5.70) Hemoglobin 14.4 g/dL (13.0-17.5) Hematocrit 42.9 % (39.0-53.0) Mean Corpuscular Volume 95 fL (79-100) Mean Corpuscular Hemoglobin 32 pg (25-35) Mean Corpuscular Hemoglobin Concent 34 g/dL (31-37) Red Cell Distribution Width 15.0 % (11.5-14.5) Platelet Count 170 x10^3/uL (140-400) Neutrophils (%) (Auto) 85 % (31-73) Lymphocytes (%) (Auto) 6 % (24-48) Monocytes (%) (Auto) 8 % (0-9) Eosinophils (%) (Auto) 0 % (0-3) Basophils (%) (Auto) 0 % (0-3) Neutrophils # (Auto) 11.4 x10^3uL (1.8-7.7) Lymphocytes # (Auto) 0.8 x10^3/uL (1.0-4.8) Monocytes # (Auto) 1.1 x10^3/uL (0.0-1.1) Eosinophils # (Auto) 0.0 x10^3/uL (0.0-0.7) Basophils # (Auto) 0.0 x10^3/uL (0.0-0.2) Segmented Neutrophils % 81 % (35-66) Band Neutrophils % 4 % (0-9) Lymphocytes % 8 % (24-48) Monocytes % 7 % (0-10) Platelet Estimate Adequate (ADEQUATE) Prothrombin Time 14.9 SEC (11.7-14.0) Prothromb Time International Ratio 1.2 (0.8-1.1) Sodium Level 139 mmol/L (136-145) Potassium Level 3.5 mmol/L (3.5-5.1) Chloride Level 102 mmol/L (98-107) Carbon Dioxide Level 27 mmol/L (21-32) Anion Gap 10 (6-14) Blood Urea Nitrogen 19 mg/dL (8-26) Creatinine 1.3 mg/dL (0.7-1.3) Estimated GFR (Cockcroft-Gault) 54.7 BUN/Creatinine Ratio 15 (6-20) Glucose Level 148 mg/dL (70-99) Lactic Acid Level 2.5 mmol/L (0.4-2.0) 1.8 mmol/L (0.4-2.0) Calcium Level 8.6 mg/dL (8.5-10.1) Magnesium Level 2.1 mg/dL (1.8-2.4) Total Bilirubin 0.4 mg/dL (0.2-1.0) Aspartate Amino Transf (AST/SGOT) 33 U/L (15-37) Alanine Aminotransferase (ALT/SGPT) 32 U/L (16-63) Alkaline Phosphatase 57 U/L (46-116) Creatine Kinase 566 U/L (39-308) Troponin I Quantitative < 0.017 ng/mL (0.000-0.055) IC-Ttt-Y-Type Natriuretic Peptide 260 pg/mL (0-124) Total Protein 7.7 g/dL (6.4-8.2) Albumin 3.7 g/dL (3.4-5.0) Albumin/Globulin Ratio 0.9 (1.0-1.7) Lipase 69 U/L (73-393) Ethyl Alcohol Level < 10 mg/dL (0-10) Urine Collection Type Unknown Urine Color Yellow Urine Clarity Clear Urine pH 5.5 Urine Specific [place] 1.025 Urine Protein 30 mg/dL (NEG-TRACE) Urine Glucose (UA) Negative mg/dL (NEG) Urine Ketones (Stick) Negative mg/dL (NEG) Urine Blood Negative (NEG) Urine Nitrite Negative (NEG) Urine Bilirubin Negative (NEG) Urine Urobilinogen Dipstick 0.2 mg/dL (0.2 mg/dL) Urine Leukocyte Esterase Negative (NEG) Urine RBC 0 /HPF (0-2) Urine WBC 1-4 /HPF (0-4) Urine Amorphous Sediment Present /HPF Urine Bacteria 0 /HPF (0-FEW) Urine Mucus Mod /LPF Urine Opiates Screen Neg (NEG) Urine Methadone Screen Neg (NEG) Urine Barbiturates Neg (NEG) Urine Phencyclidine Screen Neg (NEG) Urine Amphetamine/Methamphetamine Neg (NEG) Urine Benzodiazepines Screen Neg (NEG) Urine Cocaine Screen Neg (NEG) Urine Cannabinoids Screen Neg (NEG) Urine Ethyl Alcohol Neg (NEG) Laboratory Tests Test 01/20/19 02:49 01/20/19 02:50 01/20/19 08:55 01/20/19 15:46 Glucose (Fingerstick) 160 mg/dL (70-99) White Blood Count 13.4 x10^3/uL (4.0-11.0) Red Blood Count 4.53 x10^6/uL (4.30-5.70) Hemoglobin 14.4 g/dL (13.0-17.5) Hematocrit 42.9 % (39.0-53.0) Mean Corpuscular Volume 95 fL (79-100) Mean Corpuscular Hemoglobin 32 pg (25-35) Mean Corpuscular Hemoglobin Concent 34 g/dL (31-37) Red Cell Distribution Width 15.0 % (11.5-14.5) Platelet Count 170 x10^3/uL (140-400) Neutrophils (%) (Auto) 85 % (31-73) Lymphocytes (%) (Auto) 6 % (24-48) Monocytes (%) (Auto) 8 % (0-9) Eosinophils (%) (Auto) 0 % (0-3) Basophils (%) (Auto) 0 % (0-3) Neutrophils # (Auto) 11.4 x10^3uL (1.8-7.7) Lymphocytes # (Auto) 0.8 x10^3/uL (1.0-4.8) Monocytes # (Auto) 1.1 x10^3/uL (0.0-1.1) Eosinophils # (Auto) 0.0 x10^3/uL (0.0-0.7) Basophils # (Auto) 0.0 x10^3/uL (0.0-0.2) Segmented Neutrophils % 81 % (35-66) Band Neutrophils % 4 % (0-9) Lymphocytes % 8 % (24-48) Monocytes % 7 % (0-10) Platelet Estimate Adequate (ADEQUATE) Prothrombin Time 14.9 SEC (11.7-14.0) Prothromb Time International Ratio 1.2 (0.8-1.1) Sodium Level 139 mmol/L (136-145) Potassium Level 3.5 mmol/L (3.5-5.1) Chloride Level 102 mmol/L (98-107) Carbon Dioxide Level 27 mmol/L (21-32) Anion Gap 10 (6-14) Blood Urea Nitrogen 19 mg/dL (8-26) Creatinine 1.3 mg/dL (0.7-1.3) Estimated GFR (Cockcroft-Gault) 54.7 BUN/Creatinine Ratio 15 (6-20) Glucose Level 148 mg/dL (70-99) Lactic Acid Level 2.5 mmol/L (0.4-2.0) 1.8 mmol/L (0.4-2.0) Calcium Level 8.6 mg/dL (8.5-10.1) Magnesium Level 2.1 mg/dL (1.8-2.4) Total Bilirubin 0.4 mg/dL (0.2-1.0) Aspartate Amino Transf (AST/SGOT) 33 U/L (15-37) Alanine Aminotransferase (ALT/SGPT) 32 U/L (16-63) Alkaline Phosphatase 57 U/L (46-116) Creatine Kinase 566 U/L (39-308) Troponin I Quantitative < 0.017 ng/mL (0.000-0.055) OZ-[id number]-[id number]-Type Natriuretic Peptide 260 pg/mL (0-124) Total Protein 7.7 g/dL (6.4-8.2) Albumin 3.7 g/dL (3.4-5.0) Albumin/Globulin Ratio 0.9 (1.0-1.7) Lipase 69 U/L (73-393) Ethyl Alcohol Level < 10 mg/dL (0-10) Urine Collection Type Unknown Urine Color Yellow Urine Clarity Clear Urine pH 5.5 Urine Specific [place] 1.025 Urine Protein 30 mg/dL (NEG-TRACE) Urine Glucose (UA) Negative mg/dL (NEG) Urine Ketones (Stick) Negative mg/dL (NEG) Urine Blood Negative (NEG) Urine Nitrite Negative (NEG) Urine Bilirubin Negative (NEG) Urine Urobilinogen Dipstick 0.2 mg/dL (0.2 mg/dL) Urine Leukocyte Esterase Negative (NEG) Urine RBC 0 /HPF (0-2) Urine WBC 1-4 /HPF (0-4) Urine Amorphous Sediment Present /HPF Urine Bacteria 0 /HPF (0-FEW) Urine Mucus Mod /LPF Urine Opiates Screen Neg (NEG) Urine Methadone Screen Neg (NEG) Urine Barbiturates Neg (NEG) Urine Phencyclidine Screen Neg (NEG) Urine Amphetamine/Methamphetamine Neg (NEG) Urine Benzodiazepines Screen Neg (NEG) Urine Cocaine Screen Neg (NEG) Urine Cannabinoids Screen Neg (NEG) Urine Ethyl Alcohol Neg (NEG) Images Images CT head: No intracranial hemorrhage. No midline shift. Basal cisterns patents. Ventricles and sulci are globally prominent. No acute osseous abnormality. Opacification of frontal sinus as well as portion of ethmoid sinus. Small amount of fluid in the right maxillary sinus with postoperative changes to the medial wall of the maxillary sinuses as well as the ethmoid air cells. Scattered foci of low attenuation within the white matter. IMPRESSION: 1. No acute intracranial hemorrhage. 2. Scattered regions of low attenuation within the white matter. Non-specific in nature but frequently secondary to chronic small vessel ischemic disease. 3. Prominence of ventricles and sulci which is frequently secondary to age related volume loss. Another possible cause would include normal pressure hydrocephalus. 4. Partial opacification of paranasal sinuses which could be from congestion or sinusitis. Assessment/Plan Assessment/Plan Impression: Metabolic encephalopathy in the setting of sepsis syndrome, doing better this afternoon, and completely agrees. Recent heavy alcohol use No one knows where the diagnosis of dementia came from, it just appeared in his chart, he does not come across as demented on my examination. Recommendations: Treatment of infection per infectious disease IM thiamine for 4 days. I discussed my findings with the patient and his . Thank you for letting me help with the patient's care. LUCIAN SANTANA MD Jan 20, 2019 16:37
[2019-01-20] MEDS: TAMSULOSIN 0.4 MG CAP.ER.24H. PO SCH (16:49)
[2019-01-20] MEDS: ASPIRIN ENTERIC COATED 325 MG TABLET.DR. PO SCH (16:49)
[2019-01-20] MEDS: PANTOPRAZOLE 40 MG TABLET.DR. PO SCH (16:49)
[2019-01-20] MEDS: LEVOTHYROXINE 25 MCG TABLET. PO SCH (16:49)
[2019-01-20] MEDS: FLUTICASONE 50MCG/NASAL SPRAY 16GM BOTTLE. NS SCH (16:50)
[2019-01-20 19:00] VITALS: BP 124/62
[2019-01-20] MEDS: MEROPENEM 500 MG in IV NORMAL SALINE 50ML 50 ML IV SCH (19:13)
[2019-01-20] MEDS: THIAMINE IM 200 MG/2 ML VIAL. IM SCH (19:14)
[2019-01-20] MEDS: BUDESONIDE 0.5 MG/2 ML NEBU. NEB SCH (20:36)
[2019-01-20] MEDS ORDERED: NON FORMULARY ITEM (Budesonide/Formoterol Fumarate (Symbicort 80-4.5 Mcg Inhaler) 2 PUFF) IH SCH (21:00)
[2019-01-20] MEDS: MONTELUKAST SODIUM 10 MG TABLET. PO SCH (21:02)
[2019-01-20] MEDS: VANCOMYCIN 1.25 GM in IV NORMAL SALINE 250ML 250 ML IV SCH (21:02)
[2019-01-20 23:00] VITALS: BP 133/66
[2019-01-20] MEDS: DOXYCYCLINE HYCLATE 100 MG in IV DEXTROSE 5% 100ML 100 ML IV SCH (23:14)
[2019-01-21] MEDS: MEROPENEM 500 MG in IV NORMAL SALINE 50ML 50 ML IV SCH ×4 (01:32→18:12)
[2019-01-21 03:00] VITALS: BP 124/88
[2019-01-21] MEDS: ACETAMINOPHEN 325 MG TABLET. PO PRN ×2 (04:18→12:37)
[2019-01-21 05:54] LABS: HEMATOCRIT 39.6 % (39.0-53.0); HEMOGLOBIN 13.5 g/dL (13.0-17.5); RED BLOOD COUNT 4.15 x10^6/uL (4.30-5.70); RED CELL DISTRIBUTION WIDTH 15.3 % (11.5-14.5); WHITE BLOOD COUNT 6.3 x10^3/uL (4.0-11.0)
[2019-01-21 05:56] LABS: CREATININE 0.9 mg/dL (0.7-1.3); GFR 83.7; POTASSIUM 3.6 mmol/L (3.5-5.1)
[2019-01-21] MEDS: LEVOTHYROXINE 25 MCG TABLET. PO SCH (06:22)
[2019-01-21] MEDS: VANCOMYCIN 1.25 GM in IV NORMAL SALINE 250ML 250 ML IV SCH ×2 (06:58→20:00)
[2019-01-21 07:00] VITALS: BP 127/75
[2019-01-21] MEDS: BUDESONIDE 0.5 MG/2 ML NEBU. NEB SCH ×2 (08:00→20:51)
[2019-01-21] MEDS: IPRATRPIUM/ALBUTEROL 0.5/2.5MG 3 ML NEBU. NEB SCH ×4 (08:00→20:50)
--- NOTE | 2019-01-21 08:14 | PDOC ---
PROGRESS NOTES Chief Complaint Chief Complaint A/P: Cellulitis and abscess, right groin area - on empiric antibiotics, doxy, rocephin, vancomycin, still with fevers now per nursing staff. Will give tylenol prn. Consulted ID. Will US groin Tick bite - uncertain if he completely removed it. We cannot check lyme titers at our facility Sepsis - with leukocytosis, fever, tachycardia and abscess in groin, given empiric IVF and antibiotics Acute encephalopathy - likely related to sepsis, however early onset dementia has been documented in his medical record. Based on CT head and gait instability and urinary incontinence I have consulted neurology to evaluate for Normal Pressure Hydrocephalus Gait instability - was his chief complaint. Will have PT to see Urinary incontinence - possibly part of NPH, will get PVR to assess for bladder or prostate issues Left foot injury - able to bear weight, low suspicion for fracture. Pain control FEN - General diet PPX - SCDs FULL CODE Dispo - inpatient for sepsis from cellulitis and abscess and confusion, likely 2 midnights inpatient History of Present Illness History of Present Illness Mr Leonard is a 58 yo male w/ PMHx asthma who presents with dizziness and weakness with a fall. His reports she heard him wake up around 130 am and subsequently heard a loud fall from the patient falling and hitting the bathroom tub. He is unsure if he lost consciousness or not. His states that a large puddle of urine was next to his bed that occurred shortly before his fall. He also reports a feeling of profound weakness which is really his only complaint with me. All other history is through [facility]. For 10 days (01/08-01/17) the patient was at [facility] with friends drinking alcohol and outdoor recreation activities. The patients and daughter noted, and he confirmed that he had found a tick in his right groin region and removed it this past Sunday (January 18 2019). He notes the tick was large and black in color and engorged when it burst and he feels in the shower he removed it successfully and washed the remainder down the drain. The next day (Friday 01/19) he complained to his of pain at the site of his tick bite with associated fever, chills, body aches and severe fatigue with a mild headache and confusion. He denies chest pain, shortness of breath, visual changes, and sick contacts. He said his and friend told him he was not acting himself. In ED he was febrile with elevated WBC 13.4K with lactic 2.5. Head CT showed no acute intracranial abnormality. Cultures have been ordered. He was given a one-time dose of doxycycline and ceftriaxone and vancomycin. He says he stubbed his left toes on a ladder on a pontoon boat and has some pain there as well. Overnight much less confused. Oriented today. Has generalized weakness and now notes bilateral elbow and wrist pain and knee pains. He also still has a headache. He feels his right groin abscess is "coming to a head". Vitals Vitals Vital Signs Date Time Temp Pulse Resp B/P (MAP) Pulse Ox O2 Delivery O2 Flow Rate FiO2 01/21/19 07:00 98.2 63 14 127/75 (92) 94 Room Air 98.2 Physical Exam General: Alert, Cooperative, No acute distress Abdomen: Normal bowel sounds, Soft, No tenderness, No hepatosplenomegaly, No masses Extremities: No clubbing, No cyanosis, No edema, Normal pulses, No tenderness/swelling Skin: Other (Right groin with fluctuant mass with surrounding erythema. Left toes black and blue) Labs LABS Laboratory Tests Test 01/20/19 08:55 01/20/19 15:46 01/21/19 05:00 Lactic Acid Level 1.8 mmol/L (0.4-2.0) Urine Collection Type Unknown Urine Color Yellow Urine Clarity Clear Urine pH 5.5 Urine Specific [place] 1.025 Urine Protein 30 mg/dL (NEG-TRACE) Urine Glucose (UA) Negative mg/dL (NEG) Urine Ketones (Stick) Negative mg/dL (NEG) Urine Blood Negative (NEG) Urine Nitrite Negative (NEG) Urine Bilirubin Negative (NEG) Urine Urobilinogen Dipstick 0.2 mg/dL (0.2 mg/dL) Urine Leukocyte Esterase Negative (NEG) Urine RBC 0 /HPF (0-2) Urine WBC 1-4 /HPF (0-4) Urine Amorphous Sediment Present /HPF Urine Bacteria 0 /HPF (0-FEW) Urine Mucus Mod /LPF Urine Opiates Screen Neg (NEG) Urine Methadone Screen Neg (NEG) Urine Barbiturates Neg (NEG) Urine Phencyclidine Screen Neg (NEG) Urine Amphetamine/Methamphetamine Neg (NEG) Urine Benzodiazepines Screen Neg (NEG) Urine Cocaine Screen Neg (NEG) Urine Cannabinoids Screen Neg (NEG) Urine Ethyl Alcohol Neg (NEG) White Blood Count 6.3 x10^3/uL (4.0-11.0) Red Blood Count 4.15 x10^6/uL (4.30-5.70) Hemoglobin 13.5 g/dL (13.0-17.5) Hematocrit 39.6 % (39.0-53.0) Mean Corpuscular Volume 96 fL (79-100) Mean Corpuscular Hemoglobin 33 pg (25-35) Mean Corpuscular Hemoglobin Concent 34 g/dL (31-37) Red Cell Distribution Width 15.3 % (11.5-14.5) Platelet Count 107 x10^3/uL (140-400) Sodium Level 139 mmol/L (136-145) Potassium Level 3.6 mmol/L (3.5-5.1) Chloride Level 107 mmol/L (98-107) Carbon Dioxide Level 24 mmol/L (21-32) Anion Gap 8 (6-14) Blood Urea Nitrogen 12 mg/dL (8-26) Creatinine 0.9 mg/dL (0.7-1.3) Estimated GFR (Cockcroft-Gault) 83.7 Glucose Level 107 mg/dL (70-99) Calcium Level 8.0 mg/dL (8.5-10.1) Creatine Kinase 666 U/L (39-308) Assessment and Plan Assessmemt and Plan Problems Medical Problems: (1) Acute encephalopathy Status: Acute (2) Cellulitis of right groin Status: Acute (3) Sepsis Status: Acute Comment Review of Relevant I have reviewed the following items darwin (where applicable) has been applied. Labs Laboratory Tests Test 01/20/19 02:49 01/20/19 02:50 01/20/19 08:55 01/20/19 15:46 Glucose (Fingerstick) 160 mg/dL (70-99) White Blood Count 13.4 x10^3/uL (4.0-11.0) Red Blood Count 4.53 x10^6/uL (4.30-5.70) Hemoglobin 14.4 g/dL (13.0-17.5) Hematocrit 42.9 % (39.0-53.0) Mean Corpuscular Volume 95 fL (79-100) Mean Corpuscular Hemoglobin 32 pg (25-35) Mean Corpuscular Hemoglobin Concent 34 g/dL (31-37) Red Cell Distribution Width 15.0 % (11.5-14.5) Platelet Count 170 x10^3/uL (140-400) Neutrophils (%) (Auto) 85 % (31-73) Lymphocytes (%) (Auto) 6 % (24-48) Monocytes (%) (Auto) 8 % (0-9) Eosinophils (%) (Auto) 0 % (0-3) Basophils (%) (Auto) 0 % (0-3) Neutrophils # (Auto) 11.4 x10^3uL (1.8-7.7) Lymphocytes # (Auto) 0.8 x10^3/uL (1.0-4.8) Monocytes # (Auto) 1.1 x10^3/uL (0.0-1.1) Eosinophils # (Auto) 0.0 x10^3/uL (0.0-0.7) Basophils # (Auto) 0.0 x10^3/uL (0.0-0.2) Segmented Neutrophils % 81 % (35-66) Band Neutrophils % 4 % (0-9) Lymphocytes % 8 % (24-48) Monocytes % 7 % (0-10) Platelet Estimate Adequate (ADEQUATE) Prothrombin Time 14.9 SEC (11.7-14.0) Prothromb Time International Ratio 1.2 (0.8-1.1) Sodium Level 139 mmol/L (136-145) Potassium Level 3.5 mmol/L (3.5-5.1) Chloride Level 102 mmol/L (98-107) Carbon Dioxide Level 27 mmol/L (21-32) Anion Gap 10 (6-14) Blood Urea Nitrogen 19 mg/dL (8-26) Creatinine 1.3 mg/dL (0.7-1.3) Estimated GFR (Cockcroft-Gault) 54.7 BUN/Creatinine Ratio 15 (6-20) Glucose Level 148 mg/dL (70-99) Lactic Acid Level 2.5 mmol/L (0.4-2.0) 1.8 mmol/L (0.4-2.0) Calcium Level 8.6 mg/dL (8.5-10.1) Magnesium Level 2.1 mg/dL (1.8-2.4) Total Bilirubin 0.4 mg/dL (0.2-1.0) Aspartate Amino Transf (AST/SGOT) 33 U/L (15-37) Alanine Aminotransferase (ALT/SGPT) 32 U/L (16-63) Alkaline Phosphatase 57 U/L (46-116) Creatine Kinase 566 U/L (39-308) Troponin I Quantitative < 0.017 ng/mL (0.000-0.055) RK-Nbu-C-Type Natriuretic Peptide 260 pg/mL (0-124) Total Protein 7.7 g/dL (6.4-8.2) Albumin 3.7 g/dL (3.4-5.0) Albumin/Globulin Ratio 0.9 (1.0-1.7) Lipase 69 U/L (73-393) Ethyl Alcohol Level < 10 mg/dL (0-10) Urine Collection Type Unknown Urine Color Yellow Urine Clarity Clear Urine pH 5.5 Urine Specific [place] 1.025 Urine Protein 30 mg/dL (NEG-TRACE) Urine Glucose (UA) Negative mg/dL (NEG) Urine Ketones (Stick) Negative mg/dL (NEG) Urine Blood Negative (NEG) Urine Nitrite Negative (NEG) Urine Bilirubin Negative (NEG) Urine Urobilinogen Dipstick 0.2 mg/dL (0.2 mg/dL) Urine Leukocyte Esterase Negative (NEG) Urine RBC 0 /HPF (0-2) Urine WBC 1-4 /HPF (0-4) Urine Amorphous Sediment Present /HPF Urine Bacteria 0 /HPF (0-FEW) Urine Mucus Mod /LPF Urine Opiates Screen Neg (NEG) Urine Methadone Screen Neg (NEG) Urine Barbiturates Neg (NEG) Urine Phencyclidine Screen Neg (NEG) Urine Amphetamine/Methamphetamine Neg (NEG) Urine Benzodiazepines Screen Neg (NEG) Urine Cocaine Screen Neg (NEG) Urine Cannabinoids Screen Neg (NEG) Urine Ethyl Alcohol Neg (NEG) Test 01/21/19 05:00 White Blood Count 6.3 x10^3/uL (4.0-11.0) Red Blood Count 4.15 x10^6/uL (4.30-5.70) Hemoglobin 13.5 g/dL (13.0-17.5) Hematocrit 39.6 % (39.0-53.0) Mean Corpuscular Volume 96 fL (79-100) Mean Corpuscular Hemoglobin 33 pg (25-35) Mean Corpuscular Hemoglobin Concent 34 g/dL (31-37) Red Cell Distribution Width 15.3 % (11.5-14.5) Platelet Count 107 x10^3/uL (140-400) Sodium Level 139 mmol/L (136-145) Potassium Level 3.6 mmol/L (3.5-5.1) Chloride Level 107 mmol/L (98-107) Carbon Dioxide Level 24 mmol/L (21-32) Anion Gap 8 (6-14) Blood Urea Nitrogen 12 mg/dL (8-26) Creatinine 0.9 mg/dL (0.7-1.3) Estimated GFR (Cockcroft-Gault) 83.7 Glucose Level 107 mg/dL (70-99) Calcium Level 8.0 mg/dL (8.5-10.1) Creatine Kinase 666 U/L (39-308) Laboratory Tests Test 01/20/19 08:55 01/20/19 15:46 01/21/19 05:00 Lactic Acid Level 1.8 mmol/L (0.4-2.0) Urine Collection Type Unknown Urine Color Yellow Urine Clarity Clear Urine pH 5.5 Urine Specific [place] 1.025 Urine Protein 30 mg/dL (NEG-TRACE) Urine Glucose (UA) Negative mg/dL (NEG) Urine Ketones (Stick) Negative mg/dL (NEG) Urine Blood Negative (NEG) Urine Nitrite Negative (NEG) Urine Bilirubin Negative (NEG) Urine Urobilinogen Dipstick 0.2 mg/dL (0.2 mg/dL) Urine Leukocyte Esterase Negative (NEG) Urine RBC 0 /HPF (0-2) Urine WBC 1-4 /HPF (0-4) Urine Amorphous Sediment Present /HPF Urine Bacteria 0 /HPF (0-FEW) Urine Mucus Mod /LPF Urine Opiates Screen Neg (NEG) Urine Methadone Screen Neg (NEG) Urine Barbiturates Neg (NEG) Urine Phencyclidine Screen Neg (NEG) Urine Amphetamine/Methamphetamine Neg (NEG) Urine Benzodiazepines Screen Neg (NEG) Urine Cocaine Screen Neg (NEG) Urine Cannabinoids Screen Neg (NEG) Urine Ethyl Alcohol Neg (NEG) White Blood Count 6.3 x10^3/uL (4.0-11.0) Red Blood Count 4.15 x10^6/uL (4.30-5.70) Hemoglobin 13.5 g/dL (13.0-17.5) Hematocrit 39.6 % (39.0-53.0) Mean Corpuscular Volume 96 fL (79-100) Mean Corpuscular Hemoglobin 33 pg (25-35) Mean Corpuscular Hemoglobin Concent 34 g/dL (31-37) Red Cell Distribution Width 15.3 % (11.5-14.5) Platelet Count 107 x10^3/uL (140-400) Sodium Level 139 mmol/L (136-145) Potassium Level 3.6 mmol/L (3.5-5.1) Chloride Level 107 mmol/L (98-107) Carbon Dioxide Level 24 mmol/L (21-32) Anion Gap 8 (6-14) Blood Urea Nitrogen 12 mg/dL (8-26) Creatinine 0.9 mg/dL (0.7-1.3) Estimated GFR (Cockcroft-Gault) 83.7 Glucose Level 107 mg/dL (70-99) Calcium Level 8.0 mg/dL (8.5-10.1) Creatine Kinase 666 U/L (39-308) Microbiology 01/20/19 Blood Culture - Preliminary, Resulted NO GROWTH AFTER 1 DAY Medications Current Medications Sodium Chloride 1,000 ml @ 1,000 mls/hr 1X ONCE IV Last administered on 01/20/19at 03:06; Start 01/20/19 at 03:15; Stop 01/20/19 at 04:14; Status DC Ceftriaxone Sodium (Rocephin) 1 gm 1X ONCE IVP Last administered on 01/20/19at 04:13; Start 01/20/19 at 04:00; Stop 01/20/19 at 04:01; Status DC Doxycycline Hyclate 100 mg/ Dextrose 100 ml @ 50 mls/hr 1X ONCE IV Last administered on 01/20/19at 04:14; Start 01/20/19 at 04:00; Stop 01/20/19 at 05:59; Status DC Vancomycin HCl (Vanco Per Pharmacy) 1 each PRN DAILY PRN MC SEE COMMENTS Last administered on 01/20/19at 13:39; Start 01/20/19 at 03:45 Sodium Chloride 1,000 ml @ 1,000 mls/hr 1X ONCE IV Last administered on 01/20/19at 04:05; Start 01/20/19 at 04:00; Stop 01/20/19 at 04:59; Status DC Acetaminophen (Tylenol) 1,000 mg 1X ONCE PO Last administered on 01/20/19at 04:09; Start 01/20/19 at 04:00; Stop 01/20/19 at 04:01; Status DC Fentanyl Citrate (Fentanyl 2ml Vial) 50 mcg PRN Q1HR PRN IV SEVERE PAIN 7-10; Start 01/20/19 at 03:45; Stop 01/21/19 at 03:44; Status DC Sodium Chloride 1,000 ml @ 100 mls/hr Q10H IV Last administered on 01/20/19at 19:14; Start 01/20/19 at 05:00; Stop 01/21/19 at 04:59; Status DC Vancomycin HCl 2 gm/Sodium Chloride 500 ml @ 250 mls/hr 1X ONCE IV Last administered on 01/20/19at 06:17; Start 01/20/19 at 05:00; Stop 01/20/19 at 06:59; Status DC Sodium Chloride 500 ml @ 500 mls/hr 1X ONCE IV Last administered on 01/20/19at 04:26; Start 01/20/19 at 04:30; Stop 01/20/19 at 05:29; Status DC Vancomycin HCl 1.25 gm/Sodium Chloride 250 ml @ 167 mls/hr Q12H IV Last administered on 01/21/19at 06:58; Start 01/20/19 at 19:00 Vancomycin HCl (Vancomycin Trough Level) 1 each 1X ONCE MC ; Start 01/21/19 at 18:30; Stop 01/21/19 at 18:31 Acetaminophen (Tylenol) 650 mg PRN Q6HRS PRN PO FEVER > 102 Last administered on 01/21/19at 04:18; Start 01/20/19 at 12:15 Aspirin (Ecotrin) 325 mg DAILY PO Last administered on 01/20/19at 16:49; Start 01/20/19 at 13:00 Albuterol/ Ipratropium (Duoneb) 3 ml QID IH ; Start 01/20/19 at 13:00; Stop 01/20/19 at 13:00; Status DC Montelukast Sodium (Singulair) 10 mg HS PO Last administered on 01/20/19 21:02; Start 01/20/19 at 21:00 Tamsulosin HCl (Flomax) 0.4 mg DAILY PO Last administered on 01/20/19 16:49; Start 01/20/19 at 13:00 Non-Formulary Medication (Budesonide/ Formoterol Fumarate (Symbicort 80-4.5 Mcg Inhaler)) 2 puff BID IH ; Start 01/20/19 at 21:00; Stop 01/20/19 at 21:00; Status DC Fluticasone Propionate (Flonase) 2 spray DAILY NS Last administered on 01/20/19 16:50; Start 01/20/19 at 13:00 Levothyroxine Sodium (Synthroid) 25 mcg DAILY06 PO Last administered on 01/21/19 06:22; Start 01/20/19 at 13:00 Pantoprazole Sodium (Protonix) 40 mg DAILYAC PO Last administered on 01/20/19 16:49; Start 01/20/19 at 13:00 Non-Formulary Medication (Tiotropium Pelzer (Spiriva)) 1 cap DAILY IH ; Start 01/21/19 at 09:00; Stop 01/21/19 at 09:00; Status DC Albuterol/ Ipratropium (Duoneb) 3 ml RTQID NEB Last administered on 01/20/19 20:36; Start 01/20/19 at 16:00 Budesonide (Pulmicort) 0.5 mg RTBID NEB Last administered on 01/20/19 20:36; Start 01/20/19 at 20:00 Doxycycline Hyclate 100 mg/ Dextrose 100 ml @ 50 mls/hr Q12HR IV ; Start 01/20/19 at 14:00; Status Cancel Doxycycline Hyclate 100 mg/ Dextrose 100 ml @ 50 mls/hr Q12HR IV Last administered on 01/20/19 23:14; Start 01/20/19 at 21:00 Thiamine HCl 100 mg DAILY IM Last administered on 01/20/19 19:14; Start 01/20/19 at 16:45; Stop 01/23/19 at 09:01 Meropenem 500 mg/ Sodium Chloride 50 ml @ 100 mls/hr Q6HRS IV Last administered on 7/9/19at 06:22; Start 01/20/19 at 19:00 Active Scripts Active Reported Montelukast Sodium Tablet (Montelukast Sodium) 10 Mg Tablet 10 Mg PO HS Flonase Allergy Relief (Fluticasone Propionate) 9.9 Ml Cal[place]oun.susp 2 Sprays NS DAILY Aspirin Ec (Aspirin) 325 Mg Tablet.dr 1 Tab PO DAILY Levothyroxine Sodium 25 Mcg Tablet 1 Tab PO DAILY Spiriva (Tiotropium Pelzer) 18 Mcg Cap.w.dev 1 Cap IH DAILY Symbicort 80-4.5 Mcg Inhaler (Budesonide/Formoterol Fumarate) 10.2 Gm Hfa.aer.ad 2 Puff IH BID Omeprazole 40 Mg Capsule.dr 1 Cap PO DAILY Vitamin E (Vitamin E Acetate) 1,000 Unit Capsule 1,000 Unit PO Co Q-10 (Ubidecarenone) 100 Mg Capsule 100 Mg PO Fish Oil (Elliott-3 Fatty Acids) 500 Mg Capsule 1,000 Mg PO Tamsulosin Hcl 0.4 Mg Cap.er.24h 1 Cap PO DAILY Duoneb 0.5-3(2.5) Mg/3 Ml (Albuterol/Ipratropium) 3 Ml Ampul.neb 3 Ml IH Vitals/I & O Vital Sign - Last 24 Hours 01/20/19 01/20/19 01/20/19 01/20/19 10:56 15:00 15:44 19:00 Temp 99.0 100.4 99.4 99.0 100.4 99.4 Pulse 105 91 101 Resp 18 18 20 B/P (MAP) 129/64 (85) 130/69 (89) 124/62 (82) Pulse Ox 92 92 95 93 O2 Delivery Room Air Room Air Room Air Room Air 01/20/19 01/20/19 01/20/19 01/21/19 20:00 20:36 23:00 03:00 Temp 98.7 97.5 98.7 97.5 Pulse 72 57 Resp 20 18 B/P (MAP) 133/66 (88) 124/88 (100) Pulse Ox 93 92 95 O2 Delivery Room Air Room Air Room Air Room Air 01/21/19 07:00 Temp 98.2 98.2 Pulse 63 Resp 14 B/P (MAP) 127/75 (92) Pulse Ox 94 O2 Delivery Room Air Intake and Output 01/20/19 01/20/19 01/21/19 14:59 22:59 06:59 Intake Total 1800 ml 650 ml Output Total 350 ml 600 ml Balance 1450 ml 50 ml SOFY BARKER MD Jan 21, 2019 08:14
[2019-01-21] MEDS ORDERED: NON FORMULARY ITEM (Tiotropium Bromide (Spiriva) 1 CAP) IH SCH (09:00)
[2019-01-21] MEDS: FLUTICASONE 50MCG/NASAL SPRAY 16GM BOTTLE. NS SCH (09:00)
[2019-01-21] MEDS: TAMSULOSIN 0.4 MG CAP.ER.24H. PO SCH (09:35)
[2019-01-21] MEDS: PANTOPRAZOLE 40 MG TABLET.DR. PO SCH (09:35)
[2019-01-21] MEDS: ASPIRIN ENTERIC COATED 325 MG TABLET.DR. PO SCH (09:35)
[2019-01-21] MEDS: THIAMINE IM 200 MG/2 ML VIAL. IM SCH (09:36)
[2019-01-21] MEDS: DOXYCYCLINE HYCLATE 100 MG in IV DEXTROSE 5% 100ML 100 ML IV SCH ×2 (09:37→22:18)
--- NOTE | 2019-01-21 10:14 | PDOC ---
PROGRESS NOTES Assessment Problems Medical Problems: (1) Acute encephalopathy Status: Acute (2) Cellulitis of right groin Status: Acute (3) Sepsis Status: Acute Metabolic encephalopathy in the setting of sepsis syndrome, back to normal Recent heavy alcohol use No one knows where the diagnosis of dementia came from, it just appeared in his outpatient chart, he does not come across as demented on my examination. Plan Treatment of infection per infectious disease IM thiamine for 4 days. Subjective No complaints except mild headache Objective Vital Signs Date Time Temp Pulse Resp B/P (MAP) Pulse Ox O2 Delivery O2 Flow Rate FiO2 01/21/19 07:00 98.2 63 14 127/75 (92) 94 Room Air 98.2 Intake and Output 01/21/19 07:00 Intake Total 2450 ml Output Total 950 ml Balance 1500 ml Intake Oral 1000 ml IV Total 1450 ml Output Urine Total 950 ml # Bowel Movements 1 PHYSICAL EXAM Alert. Oriented to time, place and person. PERRL. EOMI. CN: no focal findings. Muscle tone: normal. Muscle strength: 5/5 DTR: 2+ Plantar reflex: flexor Gait: not examined in bed. Sensory exam: no abnormal findings. No cerebellar signs elicited. Review of Relevant I have reviewed the following items darwin (where applicable) has been applied. Labs Laboratory Tests Test 01/20/19 02:49 01/20/19 02:50 01/20/19 08:55 01/20/19 15:46 Glucose (Fingerstick) 160 mg/dL (70-99) White Blood Count 13.4 x10^3/uL (4.0-11.0) Red Blood Count 4.53 x10^6/uL (4.30-5.70) Hemoglobin 14.4 g/dL (13.0-17.5) Hematocrit 42.9 % (39.0-53.0) Mean Corpuscular Volume 95 fL (79-100) Mean Corpuscular Hemoglobin 32 pg (25-35) Mean Corpuscular Hemoglobin Concent 34 g/dL (31-37) Red Cell Distribution Width 15.0 % (11.5-14.5) Platelet Count 170 x10^3/uL (140-400) Neutrophils (%) (Auto) 85 % (31-73) Lymphocytes (%) (Auto) 6 % (24-48) Monocytes (%) (Auto) 8 % (0-9) Eosinophils (%) (Auto) 0 % (0-3) Basophils (%) (Auto) 0 % (0-3) Neutrophils # (Auto) 11.4 x10^3uL (1.8-7.7) Lymphocytes # (Auto) 0.8 x10^3/uL (1.0-4.8) Monocytes # (Auto) 1.1 x10^3/uL (0.0-1.1) Eosinophils # (Auto) 0.0 x10^3/uL (0.0-0.7) Basophils # (Auto) 0.0 x10^3/uL (0.0-0.2) Segmented Neutrophils % 81 % (35-66) Band Neutrophils % 4 % (0-9) Lymphocytes % 8 % (24-48) Monocytes % 7 % (0-10) Platelet Estimate Adequate (ADEQUATE) Prothrombin Time 14.9 SEC (11.7-14.0) Prothromb Time International Ratio 1.2 (0.8-1.1) Sodium Level 139 mmol/L (136-145) Potassium Level 3.5 mmol/L (3.5-5.1) Chloride Level 102 mmol/L (98-107) Carbon Dioxide Level 27 mmol/L (21-32) Anion Gap 10 (6-14) Blood Urea Nitrogen 19 mg/dL (8-26) Creatinine 1.3 mg/dL (0.7-1.3) Estimated GFR (Cockcroft-Gault) 54.7 BUN/Creatinine Ratio 15 (6-20) Glucose Level 148 mg/dL (70-99) Lactic Acid Level 2.5 mmol/L (0.4-2.0) 1.8 mmol/L (0.4-2.0) Calcium Level 8.6 mg/dL (8.5-10.1) Magnesium Level 2.1 mg/dL (1.8-2.4) Total Bilirubin 0.4 mg/dL (0.2-1.0) Aspartate Amino Transf (AST/SGOT) 33 U/L (15-37) Alanine Aminotransferase (ALT/SGPT) 32 U/L (16-63) Alkaline Phosphatase 57 U/L (46-116) Creatine Kinase 566 U/L (39-308) Troponin I Quantitative < 0.017 ng/mL (0.000-0.055) UG-Xqs-P-Type Natriuretic Peptide 260 pg/mL (0-124) Total Protein 7.7 g/dL (6.4-8.2) Albumin 3.7 g/dL (3.4-5.0) Albumin/Globulin Ratio 0.9 (1.0-1.7) Lipase 69 U/L (73-393) Ethyl Alcohol Level < 10 mg/dL (0-10) Urine Collection Type Unknown Urine Color Yellow Urine Clarity Clear Urine pH 5.5 Urine Specific [place] 1.025 Urine Protein 30 mg/dL (NEG-TRACE) Urine Glucose (UA) Negative mg/dL (NEG) Urine Ketones (Stick) Negative mg/dL (NEG) Urine Blood Negative (NEG) Urine Nitrite Negative (NEG) Urine Bilirubin Negative (NEG) Urine Urobilinogen Dipstick 0.2 mg/dL (0.2 mg/dL) Urine Leukocyte Esterase Negative (NEG) Urine RBC 0 /HPF (0-2) Urine WBC 1-4 /HPF (0-4) Urine Amorphous Sediment Present /HPF Urine Bacteria 0 /HPF (0-FEW) Urine Mucus Mod /LPF Urine Opiates Screen Neg (NEG) Urine Methadone Screen Neg (NEG) Urine Barbiturates Neg (NEG) Urine Phencyclidine Screen Neg (NEG) Urine Amphetamine/Methamphetamine Neg (NEG) Urine Benzodiazepines Screen Neg (NEG) Urine Cocaine Screen Neg (NEG) Urine Cannabinoids Screen Neg (NEG) Urine Ethyl Alcohol Neg (NEG) Test 01/21/19 05:00 White Blood Count 6.3 x10^3/uL (4.0-11.0) Red Blood Count 4.15 x10^6/uL (4.30-5.70) Hemoglobin 13.5 g/dL (13.0-17.5) Hematocrit 39.6 % (39.0-53.0) Mean Corpuscular Volume 96 fL (79-100) Mean Corpuscular Hemoglobin 33 pg (25-35) Mean Corpuscular Hemoglobin Concent 34 g/dL (31-37) Red Cell Distribution Width 15.3 % (11.5-14.5) Platelet Count 107 x10^3/uL (140-400) Sodium Level 139 mmol/L (136-145) Potassium Level 3.6 mmol/L (3.5-5.1) Chloride Level 107 mmol/L (98-107) Carbon Dioxide Level 24 mmol/L (21-32) Anion Gap 8 (6-14) Blood Urea Nitrogen 12 mg/dL (8-26) Creatinine 0.9 mg/dL (0.7-1.3) Estimated GFR (Cockcroft-Gault) 83.7 Glucose Level 107 mg/dL (70-99) Calcium Level 8.0 mg/dL (8.5-10.1) Creatine Kinase 666 U/L (39-308) Laboratory Tests Test 01/20/19 15:46 01/21/19 05:00 Urine Collection Type Unknown Urine Color Yellow Urine Clarity Clear Urine pH 5.5 Urine Specific [place] 1.025 Urine Protein 30 mg/dL (NEG-TRACE) Urine Glucose (UA) Negative mg/dL (NEG) Urine Ketones (Stick) Negative mg/dL (NEG) Urine Blood Negative (NEG) Urine Nitrite Negative (NEG) Urine Bilirubin Negative (NEG) Urine Urobilinogen Dipstick 0.2 mg/dL (0.2 mg/dL) Urine Leukocyte Esterase Negative (NEG) Urine RBC 0 /HPF (0-2) Urine WBC 1-4 /HPF (0-4) Urine Amorphous Sediment Present /HPF Urine Bacteria 0 /HPF (0-FEW) Urine Mucus Mod /LPF Urine Opiates Screen Neg (NEG) Urine Methadone Screen Neg (NEG) Urine Barbiturates Neg (NEG) Urine Phencyclidine Screen Neg (NEG) Urine Amphetamine/Methamphetamine Neg (NEG) Urine Benzodiazepines Screen Neg (NEG) Urine Cocaine Screen Neg (NEG) Urine Cannabinoids Screen Neg (NEG) Urine Ethyl Alcohol Neg (NEG) White Blood Count 6.3 x10^3/uL (4.0-11.0) Red Blood Count 4.15 x10^6/uL (4.30-5.70) Hemoglobin 13.5 g/dL (13.0-17.5) Hematocrit 39.6 % (39.0-53.0) Mean Corpuscular Volume 96 fL (79-100) Mean Corpuscular Hemoglobin 33 pg (25-35) Mean Corpuscular Hemoglobin Concent 34 g/dL (31-37) Red Cell Distribution Width 15.3 % (11.5-14.5) Platelet Count 107 x10^3/uL (140-400) Sodium Level 139 mmol/L (136-145) Potassium Level 3.6 mmol/L (3.5-5.1) Chloride Level 107 mmol/L (98-107) Carbon Dioxide Level 24 mmol/L (21-32) Anion Gap 8 (6-14) Blood Urea Nitrogen 12 mg/dL (8-26) Creatinine 0.9 mg/dL (0.7-1.3) Estimated GFR (Cockcroft-Gault) 83.7 Glucose Level 107 mg/dL (70-99) Calcium Level 8.0 mg/dL (8.5-10.1) Creatine Kinase 666 U/L (39-308) Microbiology 01/20/19 Blood Culture - Preliminary, Resulted NO GROWTH AFTER 1 DAY Medications Current Medications Sodium Chloride 1,000 ml @ 1,000 mls/hr 1X ONCE IV Last administered on 01/20/19 03:06; Start 01/20/19 at 03:15; Stop 01/20/19 at 04:14; Status DC Ceftriaxone Sodium (Rocephin) 1 gm 1X ONCE IVP Last administered on 01/20/19at 04:13; Start 01/20/19 at 04:00; Stop 01/20/19 at 04:01; Status DC Doxycycline Hyclate 100 mg/ Dextrose 100 ml @ 50 mls/hr 1X ONCE IV Last administered on 01/20/19at 04:14; Start 01/20/19 at 04:00; Stop 01/20/19 at 05:59; Status DC Vancomycin HCl (Vanco Per Pharmacy) 1 each PRN DAILY PRN MC SEE COMMENTS Last administered on 01/20/19at 13:39; Start 01/20/19 at 03:45 Sodium Chloride 1,000 ml @ 1,000 mls/hr 1X ONCE IV Last administered on 01/20/19 04:05; Start 01/20/19 at 04:00; Stop 01/20/19 at 04:59; Status DC Acetaminophen (Tylenol) 1,000 mg 1X ONCE PO Last administered on 01/20/19at 04:09; Start 01/20/19 at 04:00; Stop 01/20/19 at 04:01; Status DC Fentanyl Citrate (Fentanyl 2ml Vial) 50 mcg PRN Q1HR PRN IV SEVERE PAIN 7-10; Start 01/20/19 at 03:45; Stop 01/21/19 at 03:44; Status DC Sodium Chloride 1,000 ml @ 100 mls/hr Q10H IV Last administered on 01/20/19at 19:14; Start 01/20/19 at 05:00; Stop 01/21/19 at 04:59; Status DC Vancomycin HCl 2 gm/Sodium Chloride 500 ml @ 250 mls/hr 1X ONCE IV Last administered on 01/20/19at 06:17; Start 01/20/19 at 05:00; Stop 01/20/19 at 06:59; Status DC Sodium Chloride 500 ml @ 500 mls/hr 1X ONCE IV Last administered on 01/20/19at 04:26; Start 01/20/19 at 04:30; Stop 01/20/19 at 05:29; Status DC Vancomycin HCl 1.25 gm/Sodium Chloride 250 ml @ 167 mls/hr Q12H IV Last ad ministered on 01/21/19at 06:58; Start 01/20/19 at 19:00 Vancomycin HCl (Vancomycin Trough Level) 1 each 1X ONCE MC ; Start 01/21/19 at 18:30; Stop 01/21/19 at 18:31 Acetaminophen (Tylenol) 650 mg PRN Q6HRS PRN PO FEVER > 102 Last administered on 01/21/19at 04:18; Start 01/20/19 at 12:15 Aspirin (Ecotrin) 325 mg DAILY PO Last administered on 01/21/19at 09:35; Start 01/20/19 at 13:00 Albuterol/ Ipratropium (Duoneb) 3 ml QID IH ; Start 01/20/19 at 13:00; Stop 01/20/19 at 13:00; Status DC Montelukast Sodium (Singulair) 10 mg HS PO Last administered on 01/20/19at 21:02; Start 01/20/19 at 21:00 Tamsulosin HCl (Flomax) 0.4 mg DAILY PO Last administered on 01/21/19at 09:35; Start 01/20/19 at 13:00 Non-Formulary Medication (Budesonide/ Formoterol Fumarate (Symbicort 80-4.5 Mcg Inhaler)) 2 puff BID IH ; Start 01/20/19 at 21:00; Stop 01/20/19 at 21:00; Status DC Fluticasone Propionate (Flonase) 2 spray DAILY NS Last administered on 01/20/19 16:50; Start 01/20/19 at 13:00 Levothyroxine Sodium (Synthroid) 25 mcg DAILY06 PO Last administered on 01/21/19 06:22; Start 01/20/19 at 13:00 Pantoprazole Sodium (Protonix) 40 mg DAILYAC PO Last administered on 01/21/19 09:35; Start 01/20/19 at 13:00 Non-Formulary Medication (Tiotropium Olla (Spiriva)) 1 cap DAILY IH ; Start 01/21/19 at 09:00; Stop 01/21/19 at 09:00; Status DC Albuterol/ Ipratropium (Duoneb) 3 ml RTQID NEB Last administered on 01/20/19 20:36; Start 01/20/19 at 16:00 Budesonide (Pulmicort) 0.5 mg RTBID NEB Last administered on 01/20/19 20:36; Start 01/20/19 at 20:00 Doxycycline Hyclate 100 mg/ Dextrose 100 ml @ 50 mls/hr Q12HR IV ; Start 01/20/19 at 14:00; Status Cancel Doxycycline Hyclate 100 mg/ Dextrose 100 ml @ 50 mls/hr Q12HR IV Last administered on 01/21/19 09:37; Start 01/20/19 at 21:00 Thiamine HCl 100 mg DAILY IM Last administered on 01/21/19 09:36; Start 01/20/19 at 16:45; Stop 01/23/19 at 09:01 Meropenem 500 mg/ Sodium Chloride 50 ml @ 100 mls/hr Q6HRS IV Last administered on 01/21/19 06:22; Start 01/20/19 at 19:00 Active Scripts Active Reported Montelukast Sodium Tablet (Montelukast Sodium) 10 Mg Tablet 10 Mg PO HS Flonase Allergy Relief (Fluticasone Propionate) 9.9 Ml [place].susp 2 Sprays NS DAILY Aspirin Ec (Aspirin) 325 Mg Tablet.dr 1 Tab PO DAILY Levothyroxine Sodium 25 Mcg Tablet 1 Tab PO DAILY Spiriva (Tiotropium Olla) 18 Mcg Cap.w.dev 1 Cap IH DAILY Symbicort 80-4.5 Mcg Inhaler (Budesonide/Formoterol Fumarate) 10.2 Gm Hfa.aer.ad 2 Puff IH BID Omeprazole 40 Mg Capsule.dr 1 Cap PO DAILY Vitamin E (Vitamin E Acetate) 1,000 Unit Capsule 1,000 Unit PO Co Q-10 (Ubidecarenone) 100 Mg Capsule 100 Mg PO Fish Oil ([place]-3 Fatty Acids) 500 Mg Capsule 1,000 Mg PO Tamsulosin Hcl 0.4 Mg Cap.er.24h 1 Cap PO DAILY Duoneb 0.5-3(2.5) Mg/3 Ml (Albuterol/Ipratropium) 3 Ml Ampul.neb 3 Ml IH Vitals/I & O Vital Sign - Last 24 Hours 01/20/19 01/20/19 01/20/19 01/20/19 10:56 15:00 15:44 19:00 Temp 99.0 100.4 99.4 99.0 100.4 99.4 Pulse 105 91 101 Resp 18 18 20 B/P (MAP) 129/64 (85) 130/69 (89) 124/62 (82) Pulse Ox 92 92 95 93 O2 Delivery Room Air Room Air Room Air Room Air 01/20/19 01/20/19 01/20/19 01/21/19 20:00 20:36 23:00 03:00 Temp 98.7 97.5 98.7 97.5 Pulse 72 57 Resp 20 18 B/P (MAP) 133/66 (88) 124/88 (100) Pulse Ox 93 92 95 O2 Delivery Room Air Room Air Room Air Room Air 01/21/19 07:00 Temp 98.2 98.2 Pulse 63 Resp 14 B/P (MAP) 127/75 (92) Pulse Ox 94 O2 Delivery Room Air Intake and Output 01/20/19 01/20/19 01/21/19 15:00 23:00 07:00 Intake Total 1800 ml 650 ml Output Total 350 ml 600 ml Balance 1450 ml 50 ml LUCIAN SANTANA MD Jan 21, 2019 10:14
[2019-01-21 11:00] VITALS: BP 124/68
[2019-01-21] MEDS: VANCOMYCIN PER PHARMACY MC PRN ×2 (11:46→19:36)
--- NOTE | 2019-01-21 12:09 | PDOC ---
Infectious Disease Note Subjective Subjective Feels much better Appetite improved Took a shower and walked some Fevers/chills settled down ROS ROS per HPI Vital Sign Vital Signs Vital Signs Date Time Temp Pulse Resp B/P (MAP) Pulse Ox O2 Delivery O2 Flow Rate FiO2 01/21/19 11:00 97.9 78 12 124/68 (86) 96 Room Air 97.9 Physical Exam PHYSICAL EXAM GENERAL: Propped up in bed, alert, smiling HEENT: Pupils equally round, reactive. Normal conjunctivae. Oropharynx pink and moist. NECK: Supple. LUNGS: Clear to auscultation. HEART: S1, S2. ABDOMEN: Soft, nontender with bowel sounds present. EXTREMITIES: No gross edema or cyanosis. Third, fourth and fifth left toes less swollen and bruised. Wiggles toes without difficulty. DP palpable SKIN: Warm without signs of rash. About a 3 cm area of redness, induration and a small abscess, right groin, nontender. - improved NEUROLOGIC: Alert, answers questions appropriately Labs Lab Laboratory Tests Test 01/20/19 15:46 01/21/19 05:00 Urine Collection Type Unknown Urine Color Yellow Urine Clarity Clear Urine pH 5.5 Urine Specific [place] 1.025 Urine Protein 30 mg/dL (NEG-TRACE) Urine Glucose (UA) Negative mg/dL (NEG) Urine Ketones (Stick) Negative mg/dL (NEG) Urine Blood Negative (NEG) Urine Nitrite Negative (NEG) Urine Bilirubin Negative (NEG) Urine Urobilinogen Dipstick 0.2 mg/dL (0.2 mg/dL) Urine Leukocyte Esterase Negative (NEG) Urine RBC 0 /HPF (0-2) Urine WBC 1-4 /HPF (0-4) Urine Amorphous Sediment Present /HPF Urine Bacteria 0 /HPF (0-FEW) Urine Mucus Mod /LPF Urine Opiates Screen Neg (NEG) Urine Methadone Screen Neg (NEG) Urine Barbiturates Neg (NEG) Urine Phencyclidine Screen Neg (NEG) Urine Amphetamine/Methamphetamine Neg (NEG) Urine Benzodiazepines Screen Neg (NEG) Urine Cocaine Screen Neg (NEG) Urine Cannabinoids Screen Neg (NEG) Urine Ethyl Alcohol Neg (NEG) White Blood Count 6.3 x10^3/uL (4.0-11.0) Red Blood Count 4.15 x10^6/uL (4.30-5.70) Hemoglobin 13.5 g/dL (13.0-17.5) Hematocrit 39.6 % (39.0-53.0) Mean Corpuscular Volume 96 fL (79-100) Mean Corpuscular Hemoglobin 33 pg (25-35) Mean Corpuscular Hemoglobin Concent 34 g/dL (31-37) Red Cell Distribution Width 15.3 % (11.5-14.5) Platelet Count 107 x10^3/uL (140-400) Sodium Level 139 mmol/L (136-145) Potassium Level 3.6 mmol/L (3.5-5.1) Chloride Level 107 mmol/L (98-107) Carbon Dioxide Level 24 mmol/L (21-32) Anion Gap 8 (6-14) Blood Urea Nitrogen 12 mg/dL (8-26) Creatinine 0.9 mg/dL (0.7-1.3) Estimated GFR (Cockcroft-Gault) 83.7 Glucose Level 107 mg/dL (70-99) Calcium Level 8.0 mg/dL (8.5-10.1) Creatine Kinase 666 U/L (39-308) Micro Microbiology 01/20/19 Blood Culture - Preliminary, Resulted NO GROWTH AFTER 1 DAY Objective Assessment Fever of 103 last evening prior to our eval. Not recorded Cellulitis and abscess right groin area - U/S - neg Tick bite -Harjeet Hartley a week ago -has a [place] in [place], [place] and a home on [place] [place] Leukocytosis - better Left foot injury h/o alcohol Asthma Thrombocytopenia Plan Plan of Care Continue doxycycline Cont Vanc Cont Meropenem given h/o recurrent abx per Probiotics BC neg so far Ehrlichiosis/rickettsia tests unavailable Monitor labs/temp and renal function closely CPK up 666 (566) D/w D/w nursing Attending Co-Sign Attending Co-Sign The patient was seen and interviewed as well as examined at the bedside. The chart was reviewed. The case was discussed. Agree with the plan of care. MARIA DE JESUS GLEASON APRN Jan 21, 2019 12:09 DHAVAL ADORNO MD Jan 21, 2019 16:03
--- NOTE | 2019-01-21 14:36 | RAD ---
Focused ultrasound evaluation of the right groin 01/21/2019 INDICATION: Abscess COMPARISON STUDY: None Discussion: Focused ultrasound evaluation of the right groin was performed. Static images are submitted to PACS. Some subcutaneous edema appears to be present. Several abnormal lymph nodes are noted in the right groin which are mildly enlarged. Largest measures 2.9 x 1 point to centimeters. Eccentrically thickened cortex is noted. Small lymph nodes are seen measuring 1.3 x 0.5 cm, and 1.5 x 0.7 cm respectively. No abscess or abnormal focal fluid collection is seen. IMPRESSION: 1. No focal fluid collection or abscess is identified 2.Lymphadenopathy in the right groin, most likely reactive given provided history of possible associated infection. If clinical concern persists, a follow-up exam could be performed to ensure resolution. Electronically signed by: Xander Fiore MD (01/21/2019 2:33 PM) [id number]
[2019-01-21 15:00] VITALS: BP 138/67
[2019-01-21] MEDS: IV NORMAL SALINE 1000ML BAG 1,000 ML IV SCH (18:12)
[2019-01-21 19:00] VITALS: BP 129/64
[2019-01-21 19:11] LABS: VANC TR 5.6 mcg/mL (10.0-20.0)
--- NOTE | 2019-01-21 19:37 | NUR ---
Pharmacy Vancomycin Dosing Note S: Consulted to monitor and dose vancomycin started 01/20/19. O: VITO VEGA is a 68 year old M with Sepsis, TICK BITE . Other Antibiotics: DOXYCYCLINE 100mg IV Q12HRS MERREM 500mg IV Q6HRS LABS: Last BUN: 12 Last Creatinine: 0.9 Creatinine Clearance: 80 mL/min Last WBC: 6.3 Tmax (past 24 hours): AFEBRILE Microbiology: NG BLOOD X2 Drug Levels: Last Trough level: 5.6 on 01/21/19 at 1830 Last dose given 01/21/19 at 0700 Vancomycin Dosing: Dosing Weight: Actual Target Trough: 15-20 A: Based on: SUBTHERAPEUTIC TROUGH P: 1. Change Vancomycin to 1250 mg IV q8h 2. Follow up Trough level on 01/22/19 at 1930 3. Pharmacy will continue to monitor, follow and adjust therapy as needed. MACARENA MANRIQUE RPH, 01/21/19 1937
[2019-01-21] MEDS: MONTELUKAST SODIUM 10 MG TABLET. PO SCH (21:39)
[2019-01-21] MEDS: LACTOBACILLUS RHAMNOSUS GG 1 CAPSULE. PO SCH (21:39)
[2019-01-21 23:00] VITALS: BP 137/76
[2019-01-22] MEDS: MEROPENEM 500 MG in IV NORMAL SALINE 50ML 50 ML IV SCH ×4 (01:00→18:03)
[2019-01-22 03:00] VITALS: BP 138/72
[2019-01-22] MEDS: VANCOMYCIN 1.25 GM in IV NORMAL SALINE 250ML 250 ML IV SCH (03:54)
[2019-01-22] MEDS: ACETAMINOPHEN 325 MG TABLET. PO PRN (04:15)
[2019-01-22] MEDS: LEVOTHYROXINE 25 MCG TABLET. PO SCH (05:46)
[2019-01-22 07:00] VITALS: BP 143/76
[2019-01-22] MEDS: IPRATRPIUM/ALBUTEROL 0.5/2.5MG 3 ML NEBU. NEB SCH ×4 (07:01→19:58)
[2019-01-22] MEDS: BUDESONIDE 0.5 MG/2 ML NEBU. NEB SCH ×2 (07:01→19:58)
--- NOTE | 2019-01-22 08:26 | PDOC ---
PROGRESS NOTES Chief Complaint Chief Complaint A/P: Cellulitis and abscess, right groin area - on empiric antibiotics, doxy, rocephin, vancomycin, still with fevers now per nursing staff. Will give tylenol prn. Consulted ID. Negative US groin Tick bite - uncertain if he completely removed it. We cannot check lyme titers at our facility Sepsis - with leukocytosis, fever, tachycardia and abscess in groin, given empiric IVF and antibiotics Acute encephalopathy - likely related to sepsis, however early onset dementia has been documented in his medical record. Based on CT head and gait instability and urinary incontinence I have consulted neurology to evaluate for Normal Pressure Hydrocephalus Gait instability - was his chief complaint. Resolved Urinary incontinence - possibly part of NPH, resolved Left foot injury - able to bear weight, low suspicion for fracture. Pain control BRENNA on CPAP - cont inpatient nightly FEN - General diet PPX - SCDs FULL CODE Dispo - inpatient for sepsis from cellulitis and abscess and confusion, likely 2 midnights inpatient History of Present Illness History of Present Illness Mr Leonard is a 58 yo male w/ PMHx asthma who presents with dizziness and weakness with a fall. His reports she heard him wake up around 130 am and subsequently heard a loud fall from the patient falling and hitting the bathroom tub. He is unsure if he lost consciousness or not. His states that a large puddle of urine was next to his bed that occurred shortly before his fall. He also reports a feeling of profound weakness which is really his only complaint with me. All other history is through [facility]. For 10 days (01/08-01/17) the patient was at [facility] with friends drinking alcohol and outdoor recreation activities. The patients and daughter noted, and he confirmed that he had found a tick in his right groin region and removed it this past Sunday (January 18 2019). He notes the tick was large and black in color and engorged when it burst and he feels in the shower he removed it successfully and washed the remainder down the drain. The next day (Friday 01/19) he complained to his of pain at the site of his tick bite with associated fever, chills, body aches and severe fatigue with a mild headache and confusion. He denies chest pain, shortness of breath, visual changes, and sick contacts. He said his and friend told him he was not acting himself. In ED he was febrile with elevated WBC 13.4K with lactic 2.5. Head CT showed no acute intracranial abnormality. Cultures have been ordered. He was given a one-time dose of doxycycline and ceftriaxone and vancomycin. He says he stubbed his left toes on a ladder on a pontoon boat and has some pain there as well. 01/21: Overnight much less confused. He feels his right groin abscess is "coming to a head". US of right groin shows no large fluid collection, confirms lymphadenopathy. Overnight slept well on home CPAP. He is asking about discharge timing and final diagnosis. [place] like manipulation of his wound yesterday removed the head of the tick. Oriented today. Has generalized weakness and now notes bilateral elbow and wrist pain and knee pains. He also still has a headache. Vitals Vitals Vital Signs Date Time Temp Pulse Resp B/P (MAP) Pulse Ox O2 Delivery O2 Flow Rate FiO2 01/22/19 07:05 96 Room Air 01/22/19 03:00 99.9 89 20 138/72 (94) 99.9 Physical Exam Physical Exam GENERAL: Propped up in bed, alert, smiling HEENT: Pupils equally round, reactive. Normal conjunctivae. Oropharynx pink and moist. NECK: Supple. LUNGS: Clear to auscultation. HEART: S1, S2. ABDOMEN: Soft, nontender with bowel sounds present. EXTREMITIES: No gross edema or cyanosis. Third, fourth and fifth left toes less swollen and bruised. Wiggles toes without difficulty. DP palpable SKIN: Warm without signs of rash. About a 3 cm area of redness, induration and a small abscess, right groin, nontender. - improved NEUROLOGIC: Alert, answers questions appropriately General: Alert, Cooperative, No acute distress Heart: Regular rate, Normal S1, Normal S2 Lungs: Clear Abdomen: Normal bowel sounds, Soft, No tenderness, No hepatosplenomegaly, No masses Extremities: No clubbing, No cyanosis, No edema, Normal pulses, No tenderness/swelling Skin: Other (Right groin with fluctuant mass with surrounding erythema. Left toes black and blue) Labs LABS Laboratory Tests Test 01/21/19 18:35 Vancomycin Level Trough 5.6 mcg/mL (10.0-20.0) Vancomycin Last Dose Date 01/21/19 Vancomycin Last Dose Time 0700 Assessment and Plan Assessmemt and Plan Problems Medical Problems: (1) Acute encephalopathy Status: Acute (2) Cellulitis of right groin Status: Acute (3) Injury of left foot Status: Acute (4) Metabolic encephalopathy Status: Acute (5) Sepsis Status: Acute Comment Review of Relevant I have reviewed the following items darwin (where applicable) has been applied. Labs Laboratory Tests Test 01/20/19 08:55 01/20/19 15:46 01/21/19 05:00 01/21/19 18:35 Lactic Acid Level 1.8 mmol/L (0.4-2.0) Urine Collection Type Unknown Urine Color Yellow Urine Clarity Clear Urine pH 5.5 Urine Specific [place] 1.025 Urine Protein 30 mg/dL (NEG-TRACE) Urine Glucose (UA) Negative mg/dL (NEG) Urine Ketones (Stick) Negative mg/dL (NEG) Urine Blood Negative (NEG) Urine Nitrite Negative (NEG) Urine Bilirubin Negative (NEG) Urine Urobilinogen Dipstick 0.2 mg/dL (0.2 mg/dL) Urine Leukocyte Esterase Negative (NEG) Urine RBC 0 /HPF (0-2) Urine WBC 1-4 /HPF (0-4) Urine Amorphous Sediment Present /HPF Urine Bacteria 0 /HPF (0-FEW) Urine Mucus Mod /LPF Urine Opiates Screen Neg (NEG) Urine Methadone Screen Neg (NEG) Urine Barbiturates Neg (NEG) Urine Phencyclidine Screen Neg (NEG) Urine Amphetamine/Methamphetamine Neg (NEG) Urine Benzodiazepines Screen Neg (NEG) Urine Cocaine Screen Neg (NEG) Urine Cannabinoids Screen Neg (NEG) Urine Ethyl Alcohol Neg (NEG) White Blood Count 6.3 x10^3/uL (4.0-11.0) Red Blood Count 4.15 x10^6/uL (4.30-5.70) Hemoglobin 13.5 g/dL (13.0-17.5) Hematocrit 39.6 % (39.0-53.0) Mean Corpuscular Volume 96 fL (79-100) Mean Corpuscular Hemoglobin 33 pg (25-35) Mean Corpuscular Hemoglobin Concent 34 g/dL (31-37) Red Cell Distribution Width 15.3 % (11.5-14.5) Platelet Count 107 x10^3/uL (140-400) Sodium Level 139 mmol/L (136-145) Potassium Level 3.6 mmol/L (3.5-5.1) Chloride Level 107 mmol/L (98-107) Carbon Dioxide Level 24 mmol/L (21-32) Anion Gap 8 (6-14) Blood Urea Nitrogen 12 mg/dL (8-26) Creatinine 0.9 mg/dL (0.7-1.3) Estimated GFR (Cockcroft-Gault) 83.7 Glucose Level 107 mg/dL (70-99) Calcium Level 8.0 mg/dL (8.5-10.1) Creatine Kinase 666 U/L (39-308) Vancomycin Level Trough 5.6 mcg/mL (10.0-20.0) Vancomycin Last Dose Date 01/21/19 Vancomycin Last Dose Time 0700 Laboratory Tests Test 01/21/19 18:35 Vancomycin Level Trough 5.6 mcg/mL (10.0-20.0) Vancomycin Last Dose Date 01/21/19 Vancomycin Last Dose Time 0700 Microbiology 01/20/19 Blood Culture - Preliminary, Resulted NO GROWTH AFTER 2 DAYS Medications Current Medications Sodium Chloride 1,000 ml @ 1,000 mls/hr 1X ONCE IV Last administered on 01/20/19at 03:06; Start 01/20/19 at 03:15; Stop 01/20/19 at 04:14; Status DC Ceftriaxone Sodium (Rocephin) 1 gm 1X ONCE IVP Last administered on 01/20/19at 04:13; Start 01/20/19 at 04:00; Stop 01/20/19 at 04:01; Status DC Doxycycline Hyclate 100 mg/ Dextrose 100 ml @ 50 mls/hr 1X ONCE IV Last administered on 01/20/19at 04:14; Start 01/20/19 at 04:00; Stop 01/20/19 at 05:59; Status DC Vancomycin HCl (Vanco Per Pharmacy) 1 each PRN DAILY PRN MC SEE COMMENTS Last administered on 01/21/19at 19:36; Start 01/20/19 at 03:45 Sodium Chloride 1,000 ml @ 1,000 mls/hr 1X ONCE IV Last administered on 01/20/19at 04:05; Start 01/20/19 at 04:00; Stop 01/20/19 at 04:59; Status DC Acetaminophen (Tylenol) 1,000 mg 1X ONCE PO Last administered on 01/20/19 04:09; Start 01/20/19 at 04:00; Stop 01/20/19 at 04:01; Status DC Fentanyl Citrate (Fentanyl 2ml Vial) 50 mcg PRN Q1HR PRN IV SEVERE PAIN 7-10; Start 01/20/19 at 03:45; Stop 01/21/19 at 03:44; Status DC Sodium Chloride 1,000 ml @ 100 mls/hr Q10H IV Last administered on 01/21/19at 18:12; Start 01/20/19 at 05:00; Stop 01/21/19 at 04:59; Status DC Vancomycin HCl 2 gm/Sodium Chloride 500 ml @ 250 mls/hr 1X ONCE IV Last administered on 01/20/19 06:17; Start 01/20/19 at 05:00; Stop 01/20/19 at 06:59; Status DC Sodium Chloride 500 ml @ 500 mls/hr 1X ONCE IV Last administered on 01/20/19 04:26; Start 01/20/19 at 04:30; Stop 01/20/19 at 05:29; Status DC Vancomycin HCl 1.25 gm/Sodium Chloride 250 ml @ 167 mls/hr Q12H IV Last administered on 01/21/19 06:58; Start 01/20/19 at 19:00; Stop 01/21/19 at 19:22; Status DC Vancomycin HCl (Vancomycin Trough Level) 1 each 1X ONCE MC Last administered on 01/21/19 18:30; Start 01/21/19 at 18:30; Stop 01/21/19 at 18:31; Status DC Acetaminophen (Tylenol) 650 mg PRN Q6HRS PRN PO FEVER > 102 Last administered on 01/22/19 04:15; Start 01/20/19 at 12:15 Aspirin (Ecotrin) 325 mg DAILY PO Last administered on 01/21/19 09:35; Start 01/20/19 at 13:00 Albuterol/ Ipratropium (Duoneb) 3 ml QID IH ; Start 01/20/19 at 13:00; Stop 01/20/19 at 13:00; Status DC Montelukast Sodium (Singulair) 10 mg HS PO Last administered on 01/21/19at 21:39; Start 01/20/19 at 21:00 Tamsulosin HCl (Flomax) 0.4 mg DAILY PO Last administered on 01/21/19 09:35; Start 01/20/19 at 13:00 Non-Formulary Medication (Budesonide/ Formoterol Fumarate (Symbicort 80-4.5 Mcg Inhaler)) 2 puff BID IH ; Start 01/20/19 at 21:00; Stop 01/20/19 at 21:00; Status DC Fluticasone Propionate (Flonase) 2 spray DAILY NS Last administered on 01/20/19at 16:50; Start 01/20/19 at 13:00 Levothyroxine Sodium (Synthroid) 25 mcg DAILY06 PO Last administered on 01/22/19 05:46; Start 01/20/19 at 13:00 Pantoprazole Sodium (Protonix) 40 mg DAILYAC PO Last administered on 01/21/19 09:35; Start 01/20/19 at 13:00 Non-Formulary Medication (Tiotropium [place] (Spiriva)) 1 cap DAILY IH ; Start 01/21/19 at 09:00; Stop 01/21/19 at 09:00; Status DC Albuterol/ Ipratropium (Duoneb) 3 ml RTQID NEB Last administered on 01/22/19at 07:01; Start 01/20/19 at 16:00 Budesonide (Pulmicort) 0.5 mg RTBID NEB Last administered on 01/22/19at 07:01; Start 01/20/19 at 20:00 Doxycycline Hyclate 100 mg/ Dextrose 100 ml @ 50 mls/hr Q12HR IV ; Start 01/20/19 at 14:00; Status Cancel Doxycycline Hyclate 100 mg/ Dextrose 100 ml @ 50 mls/hr Q12HR IV Last administered on 01/21/19at 22:18; Start 01/20/19 at 21:00 Thiamine HCl 100 mg DAILY IM Last administered on 01/21/19at 09:36; Start 01/20/19 at 16:45; Stop 01/23/19 at 09:01 Meropenem 500 mg/ Sodium Chloride 50 ml @ 100 mls/hr Q6HRS IV Last administered on 01/22/19at 05:46; Start 01/20/19 at 19:00 Lactobacillus Rhamnosus (Culturelle) 1 cap BID PO Last administered on 01/21/19at 21:39; Start 01/21/19 at 21:00 Vancomycin HCl 1.25 gm/Sodium Chloride 250 ml @ 167 mls/hr Q8H IV Last administered on 01/22/19at 03:54; Start 01/21/19 at 20:00 Vancomycin HCl (Vancomycin Trough Level) 1 each 1X ONCE MC ; Start 01/22/19 at 19:30; Stop 01/22/19 at 19:31 Active Scripts Active Reported Montelukast Sodium Tablet (Montelukast Sodium) 10 Mg Tablet 10 Mg PO HS Flonase Allergy Relief (Fluticasone Propionate) 9.9 Ml [place].susp 2 Sprays NS DAILY Aspirin Ec (Aspirin) 325 Mg Tablet.dr 1 Tab PO DAILY Levothyroxine Sodium 25 Mcg Tablet 1 Tab PO DAILY Spiriva (Tiotropium [place]) 18 Mcg Cap.w.dev 1 Cap IH DAILY Symbicort 80-4.5 Mcg Inhaler (Budesonide/Formoterol Fumarate) 10.2 Gm Hfa.aer.ad 2 Puff IH BID Omeprazole 40 Mg Capsule.dr 1 Cap PO DAILY Vitamin E (Vitamin E Acetate) 1,000 Unit Capsule 1,000 Unit PO Co Q-10 (Ubidecarenone) 100 Mg Capsule 100 Mg PO Fish Oil ([place]-3 Fatty Acids) 500 Mg Capsule 1,000 Mg PO Tamsulosin Hcl 0.4 Mg Cap.er.24h 1 Cap PO DAILY Duoneb 0.5-3(2.5) Mg/3 Ml (Albuterol/Ipratropium) 3 Ml Ampul.neb 3 Ml IH Vitals/I & O Vital Sign - Last 24 Hours 01/21/19 01/21/19 01/21/19 01/21/19 11:00 14:58 15:00 19:00 Temp 97.9 97.6 98.8 97.9 97.6 98.8 Pulse 78 79 90 Resp 12 16 18 B/P (MAP) 124/68 (86) 138/67 (90) 129/64 (85) Pulse Ox 96 98 98 94 O2 Delivery Room Air Room Air Room Air Room Air 01/21/19 01/21/19 01/21/19 01/22/19 20:00 20:53 23:00 03:00 Temp 98.7 99.9 98.7 99.9 Pulse 86 89 Resp 20 20 B/P (MAP) 137/76 (96) 138/72 (94) Pulse Ox 94 95 93 O2 Delivery Room Air Room Air BiPAP/CPAP BiPAP/CPAP 01/22/19 07:05 Pulse Ox 96 O2 Delivery Room Air Intake and Output 01/21/19 01/21/19 01/22/19 15:00 23:00 07:00 Intake Total 820 ml 850 ml 1150 ml Output Total 350 ml 350 ml Balance 820 ml 500 ml 800 ml SOFY BARKER MD Jan 22, 2019 08:26
[2019-01-22] MEDS: FLUTICASONE 50MCG/NASAL SPRAY 16GM BOTTLE. NS SCH ×2 (09:00→21:30)
[2019-01-22] MEDS: ASPIRIN ENTERIC COATED 325 MG TABLET.DR. PO SCH (09:17)
[2019-01-22] MEDS: PANTOPRAZOLE 40 MG TABLET.DR. PO SCH (09:17)
[2019-01-22] MEDS: TAMSULOSIN 0.4 MG CAP.ER.24H. PO SCH (09:17)
[2019-01-22] MEDS: LACTOBACILLUS RHAMNOSUS GG 1 CAPSULE. PO SCH ×2 (09:17→21:13)
[2019-01-22] MEDS: THIAMINE IM 200 MG/2 ML VIAL. IM SCH (09:19)
[2019-01-22] MEDS: DOXYCYCLINE HYCLATE 100 MG in IV DEXTROSE 5% 100ML 100 ML IV SCH ×2 (09:19→21:13)
--- NOTE | 2019-01-22 10:25 | PDOC ---
Infectious Disease Note Subjective: Subjective Feels much better Appetite improved Took a shower and walked some Fevers/chills pattern improving some loose bm ROS: ROS Negative except for above. Vital Signs: Vital Signs Vital Signs Date Time Temp Pulse Resp B/P (MAP) Pulse Ox O2 Delivery O2 Flow Rate FiO2 01/22/19 07:05 96 Room Air 01/22/19 07:00 97.9 86 18 143/76 (98) 97.9 Physical Exam: PHYSICAL EXAM GENERAL: Propped up in bed, alert, smiling HEENT: Pupils equally round, reactive. Normal conjunctivae. Oropharynx pink and moist. NECK: Supple. LUNGS: Clear to auscultation. HEART: S1, S2. ABDOMEN: Soft, nontender with bowel sounds present. EXTREMITIES: No gross edema or cyanosis. Third, fourth and fifth left toes less swollen and bruised. Wiggles toes without difficulty. DP palpable SKIN: Warm without signs of rash. About a 3 cm area of redness, induration and a small abscess, right groin, nontender. - improved NEUROLOGIC: Alert, answers questions appropriately Medications: Inpatient Meds: Current Medications Medications (Trade) Dose Ordered Sig/Do Start Time Stop Time Status Last Admin Dose Admin Acetaminophen (Tylenol) 650 mg PRN Q6HRS PRN 01/20/19 12:15 01/22/19 04:15 650 MG Albuterol/ Ipratropium (Duoneb) 3 ml RTQID 01/20/19 16:00 01/22/19 07:01 3 ML Aspirin (Ecotrin) 325 mg DAILY 01/20/19 13:00 01/22/19 09:17 325 MG Budesonide (Pulmicort) 0.5 mg RTBID 01/20/19 20:00 01/22/19 07:01 0.5 MG Ceftriaxone Sodium (Rocephin) 1 gm 1X ONCE 01/20/19 04:00 01/20/19 04:01 DC 01/20/19 04:13 1 GM Doxycycline Hyclate 100 mg/ Dextrose 100 ml @ 50 mls/hr Q12HR 01/20/19 21:00 01/22/19 09:19 50 MLS/HR Fentanyl Citrate (Fentanyl 2ml Vial) 50 mcg PRN Q1HR PRN 01/20/19 03:45 01/21/19 03:44 DC Fluticasone Propionate (Flonase) 2 spray DAILY 01/20/19 13:00 01/20/19 16:50 2 SPRAY Lactobacillus Rhamnosus (Culturelle) 1 cap BID 01/21/19 21:00 01/22/19 09:17 1 CAP Levothyroxine Sodium (Synthroid) 25 mcg DAILY06 01/20/19 13:00 01/22/19 05:46 25 MCG Meropenem 500 mg/ Sodium Chloride 50 ml @ 100 mls/hr Q6HRS 01/20/19 19:00 01/22/19 05:46 100 MLS/HR Montelukast Sodium (Singulair) 10 mg HS 01/20/19 21:00 01/21/19 21:39 10 MG Non-Formulary Medication (Budesonide/ Formoterol Fumarate (Symbicort 80-4.5 Mcg Inhaler)) 2 puff BID 01/20/19 21:00 01/20/19 21:00 DC Non-Formulary Medication (Tiotropium [place] (Spiriva)) 1 cap DAILY 01/21/19 09:00 01/21/19 09:00 DC Pantoprazole Sodium (Protonix) 40 mg DAILYAC 01/20/19 13:00 01/22/19 09:17 40 MG Sodium Chloride 500 ml @ 500 mls/hr 1X ONCE 01/20/19 04:30 01/20/19 05:29 DC 01/20/19 04:26 500 MLS/HR Tamsulosin HCl (Flomax) 0.4 mg DAILY 01/20/19 13:00 01/22/19 09:17 0.4 MG Thiamine HCl 100 mg DAILY 01/20/19 16:45 01/23/19 09:01 01/22/19 09:19 100 MG Vancomycin HCl (Vanco Per Pharmacy) 1 each PRN DAILY PRN 01/20/19 03:45 01/21/19 19:36 1 EACH Vancomycin HCl (Vancomycin Trough Level) 1 each 1X ONCE 01/22/19 19:30 01/22/19 19:31 Vancomycin HCl 1.25 gm/Sodium Chloride 250 ml @ 167 mls/hr Q8H 01/21/19 20:00 01/22/19 03:54 167 MLS/HR Vancomycin HCl 2 gm/Sodium Chloride 500 ml @ 250 mls/hr 1X ONCE 01/20/19 05:00 01/20/19 06:59 DC 01/20/19 06:17 250 MLS/HR Labs: Lab Laboratory Tests Test 01/21/19 18:35 Vancomycin Level Trough 5.6 mcg/mL (10.0-20.0) Vancomycin Last Dose Date 01/21/19 Vancomycin Last Dose Time 0700 Objective: Assessment: Fever of 103 previously ( Not recorded) n ow pattern improving Cellulitis and abscess right groin area - U/S - neg Tick bite -Harjeet Hartley a week ago -has a Farm in [place], [place] and a home on 1/[address] [place] Leukocytosis - better Left foot injury 10 days prior to admission ,improving h/o alcohol Asthma Thrombocytopenia Plan: Plan of Care Continue doxycycline dc vanc start zyvox cont Merrem Probiotics BC neg so far Ehrlichiosis/rickettsia tests unavailable Monitor labs/temp and renal function closely CPK up 666 ([phone]) D/w D/w nursing NICOLLE NARAYAN MD Jan 22, 2019 10:25
--- NOTE | 2019-01-22 10:50 | PDOC ---
PROGRESS NOTES Assessment Problems Medical Problems: (1) Acute encephalopathy Status: Acute (2) Cellulitis of right groin Status: Acute (3) Injury of left foot Status: Acute (4) Metabolic encephalopathy Status: Acute (5) Sepsis Status: Acute Metabolic encephalopathy in the setting of sepsis syndrome, back to normal Recent heavy alcohol use Listed diagnosis of dementia, no sign of this. Plan Treatment of infection per infectious disease IM thiamine for 4 days. Subjective Thinks he had a low grade fever last night, temperature 99.7, explained to the patient that technically that does not represent a fever Objective Vital Signs Date Time Temp Pulse Resp B/P (MAP) Pulse Ox O2 Delivery O2 Flow Rate FiO2 01/22/19 07:05 96 Room Air 01/22/19 07:00 97.9 86 18 143/76 (98) 97.9 Intake and Output 01/22/19 06:59 Intake Total 2820 ml Output Total 700 ml Balance 2120 ml Intake Oral 2120 ml IV Total 700 ml Output Urine Total 700 ml # Voids 2 # Bowel Movements 1 PHYSICAL EXAM Alert. Oriented to time, place and person. PERRL. EOMI. CN: no focal findings. Muscle tone: normal. Muscle strength: 5/5 DTR: 2+ Plantar reflex: flexor Gait: normal. Sensory exam: no abnormal findings. No cerebellar signs elicited. Review of Relevant I have reviewed the following items darwin (where applicable) has been applied. Labs Laboratory Tests Test 01/20/19 15:46 01/21/19 05:00 01/21/19 18:35 Urine Collection Type Unknown Urine Color Yellow Urine Clarity Clear Urine pH 5.5 Urine Specific [place] 1.025 Urine Protein 30 mg/dL (NEG-TRACE) Urine Glucose (UA) Negative mg/dL (NEG) Urine Ketones (Stick) Negative mg/dL (NEG) Urine Blood Negative (NEG) Urine Nitrite Negative (NEG) Urine Bilirubin Negative (NEG) Urine Urobilinogen Dipstick 0.2 mg/dL (0.2 mg/dL) Urine Leukocyte Esterase Negative (NEG) Urine RBC 0 /HPF (0-2) Urine WBC 1-4 /HPF (0-4) Urine Amorphous Sediment Present /HPF Urine Bacteria 0 /HPF (0-FEW) Urine Mucus Mod /LPF Urine Opiates Screen Neg (NEG) Urine Methadone Screen Neg (NEG) Urine Barbiturates Neg (NEG) Urine Phencyclidine Screen Neg (NEG) Urine Amphetamine/Methamphetamine Neg (NEG) Urine Benzodiazepines Screen Neg (NEG) Urine Cocaine Screen Neg (NEG) Urine Cannabinoids Screen Neg (NEG) Urine Ethyl Alcohol Neg (NEG) White Blood Count 6.3 x10^3/uL (4.0-11.0) Red Blood Count 4.15 x10^6/uL (4.30-5.70) Hemoglobin 13.5 g/dL (13.0-17.5) Hematocrit 39.6 % (39.0-53.0) Mean Corpuscular Volume 96 fL (79-100) Mean Corpuscular Hemoglobin 33 pg (25-35) Mean Corpuscular Hemoglobin Concent 34 g/dL (31-37) Red Cell Distribution Width 15.3 % (11.5-14.5) Platelet Count 107 x10^3/uL (140-400) Sodium Level 139 mmol/L (136-145) Potassium Level 3.6 mmol/L (3.5-5.1) Chloride Level 107 mmol/L (98-107) Carbon Dioxide Level 24 mmol/L (21-32) Anion Gap 8 (6-14) Blood Urea Nitrogen 12 mg/dL (8-26) Creatinine 0.9 mg/dL (0.7-1.3) Estimated GFR (Cockcroft-Gault) 83.7 Glucose Level 107 mg/dL (70-99) Calcium Level 8.0 mg/dL (8.5-10.1) Creatine Kinase 666 U/L (39-308) Vancomycin Level Trough 5.6 mcg/mL (10.0-20.0) Vancomycin Last Dose Date 01/21/19 Vancomycin Last Dose Time 0700 Laboratory Tests Test 01/21/19 18:35 Vancomycin Level Trough 5.6 mcg/mL (10.0-20.0) Vancomycin Last Dose Date 01/21/19 Vancomycin Last Dose Time 0700 Microbiology 01/20/19 Blood Culture - Preliminary, Resulted NO GROWTH AFTER 2 DAYS Medications Current Medications Sodium Chloride 1,000 ml @ 1,000 mls/hr 1X ONCE IV Last administered on 01/20/19at 03:06; Start 01/20/19 at 03:15; Stop 01/20/19 at 04:14; Status DC Ceftriaxone Sodium (Rocephin) 1 gm 1X ONCE IVP Last administered on 01/20/19 04:13; Start 01/20/19 at 04:00; Stop 01/20/19 at 04:01; Status DC Doxycycline Hyclate 100 mg/ Dextrose 100 ml @ 50 mls/hr 1X ONCE IV Last administered on 01/20/19 04:14; Start 01/20/19 at 04:00; Stop 01/20/19 at 05:59; Status DC Vancomycin HCl (Vanco Per Pharmacy) 1 each PRN DAILY PRN MC SEE COMMENTS Last administered on 01/21/19 19:36; Start 01/20/19 at 03:45 Sodium Chloride 1,000 ml @ 1,000 mls/hr 1X ONCE IV Last administered on 01/20/19 04:05; Start 01/20/19 at 04:00; Stop 01/20/19 at 04:59; Status DC Acetaminophen (Tylenol) 1,000 mg 1X ONCE PO Last administered on 01/20/19 04:09; Start 01/20/19 at 04:00; Stop 01/20/19 at 04:01; Status DC Fentanyl Citrate (Fentanyl 2ml Vial) 50 mcg PRN Q1HR PRN IV SEVERE PAIN 7-10; Start 01/20/19 at 03:45; Stop 01/21/19 at 03:44; Status DC Sodium Chloride 1,000 ml @ 100 mls/hr Q10H IV Last administered on 01/21/19 18:12; Start 01/20/19 at 05:00; Stop 01/21/19 at 04:59; Status DC Vancomycin HCl 2 gm/Sodium Chloride 500 ml @ 250 mls/hr 1X ONCE IV Last administered on 01/20/19 06:17; Start 01/20/19 at 05:00; Stop 01/20/19 at 06:59; Status DC Sodium Chloride 500 ml @ 500 mls/hr 1X ONCE IV Last administered on 01/20/19 04:26; Start 01/20/19 at 04:30; Stop 01/20/19 at 05:29; Status DC Vancomycin HCl 1.25 gm/Sodium Chloride 250 ml @ 167 mls/hr Q12H IV Last administered on 01/21/19at 06:58; Start 01/20/19 at 19:00; Stop 01/21/19 at 19:22; Status DC Vancomycin HCl (Vancomycin Trough Level) 1 each 1X ONCE MC Last administered on 01/21/19 18:30; Start 01/21/19 at 18:30; Stop 01/21/19 at 18:31; Status DC Acetaminophen (Tylenol) 650 mg PRN Q6HRS PRN PO FEVER > 102 Last administered on 01/22/19 04:15; Start 01/20/19 at 12:15 Aspirin (Ecotrin) 325 mg DAILY PO Last administered on 01/22/19 09:17; Start 01/20/19 at 13:00 Albuterol/ Ipratropium (Duoneb) 3 ml QID IH ; Start 01/20/19 at 13:00; Stop 01/20/19 at 13:00; Status DC Montelukast Sodium (Singulair) 10 mg HS PO Last administered on 01/21/19 21:39; Start 01/20/19 at 21:00 Tamsulosin HCl (Flomax) 0.4 mg DAILY PO Last administered on 01/22/19 09:17; Start 01/20/19 at 13:00 Non-Formulary Medication (Budesonide/ Formoterol Fumarate (Symbicort 80-4.5 Mcg Inhaler)) 2 puff BID IH ; Start 01/20/19 at 21:00; Stop 01/20/19 at 21:00; Status DC Fluticasone Propionate (Flonase) 2 spray DAILY NS Last administered on 01/20/19 16:50; Start 01/20/19 at 13:00 Levothyroxine Sodium (Synthroid) 25 mcg DAILY06 PO Last administered on 01/22/19 05:46; Start 01/20/19 at 13:00 Pantoprazole Sodium (Protonix) 40 mg DAILYAC PO Last administered on 01/22/19 09:17; Start 01/20/19 at 13:00 Non-Formulary Medication (Tiotropium [place] (Spiriva)) 1 cap DAILY IH ; Start 01/21/19 at 09:00; Stop 01/21/19 at 09:00; Status DC Albuterol/ Ipratropium (Duoneb) 3 ml RTQID NEB Last administered on 01/22/19 07:01; Start 01/20/19 at 16:00 Budesonide (Pulmicort) 0.5 mg RTBID NEB Last administered on 01/22/19at 07:01; Start 01/20/19 at 20:00 Doxycycline Hyclate 100 mg/ Dextrose 100 ml @ 50 mls/hr Q12HR IV ; Start 01/20/19 at 14:00; Status Cancel Doxycycline Hyclate 100 mg/ Dextrose 100 ml @ 50 mls/hr Q12HR IV Last administered on 01/22/19at 09:19; Start 01/20/19 at 21:00 Thiamine HCl 100 mg DAILY IM Last administered on 01/22/19at 09:19; Start 01/20/19 at 16:45; Stop 01/23/19 at 09:01 Meropenem 500 mg/ Sodium Chloride 50 ml @ 100 mls/hr Q6HRS IV Last administered on 01/22/19at 05:46; Start 01/20/19 at 19:00 Lactobacillus Rhamnosus (Culturelle) 1 cap BID PO Last administered on 01/22/19at 09:17; Start 01/21/19 at 21:00 Vancomycin HCl 1.25 gm/Sodium Chloride 250 ml @ 167 mls/hr Q8H IV Last administered on 01/22/19at 03:54; Start 01/21/19 at 20:00 Vancomycin HCl (Vancomycin Trough Level) 1 each 1X ONCE MC ; Start 01/22/19 at 19:30; Stop 01/22/19 at 19:31 Active Scripts Active Reported Montelukast Sodium Tablet (Montelukast Sodium) 10 Mg Tablet 10 Mg PO HS Flonase Allergy Relief (Fluticasone Propionate) 9.9 Ml [place].susp 2 Sprays NS DAILY Aspirin Ec (Aspirin) 325 Mg Tablet.dr 1 Tab PO DAILY Levothyroxine Sodium 25 Mcg Tablet 1 Tab PO DAILY Spiriva (Tiotropium [place]) 18 Mcg Cap.w.dev 1 Cap IH DAILY Symbicort 80-4.5 Mcg Inhaler (Budesonide/Formoterol Fumarate) 10.2 Gm Hfa.aer.ad 2 Puff IH BID Omeprazole 40 Mg Capsule.dr 1 Cap PO DAILY Vitamin E (Vitamin E Acetate) 1,000 Unit Capsule 1,000 Unit PO Co Q-10 (Ubidecarenone) 100 Mg Capsule 100 Mg PO Fish Oil ([place]-3 Fatty Acids) 500 Mg Capsule 1,000 Mg PO Tamsulosin Hcl 0.4 Mg Cap.er.24h 1 Cap PO DAILY Duoneb 0.5-3(2.5) Mg/3 Ml (Albuterol/Ipratropium) 3 Ml Ampul.neb 3 Ml IH Vitals/I & O Vital Sign - Last 24 Hours 01/21/19 01/21/19 01/21/19 01/21/19 11:00 14:58 15:00 19:00 Temp 97.9 97.6 98.8 97.9 97.6 98.8 Pulse 78 79 90 Resp 12 16 18 B/P (MAP) 124/68 (86) 138/67 (90) 129/64 (85) Pulse Ox 96 98 98 94 O2 Delivery Room Air Room Air Room Air Room Air 01/21/19 01/21/19 01/21/19 01/22/19 20:00 20:53 23:00 03:00 Temp 98.7 99.9 98.7 99.9 Pulse 86 89 Resp 20 20 B/P (MAP) 137/76 (96) 138/72 (94) Pulse Ox 94 95 93 O2 Delivery Room Air Room Air BiPAP/CPAP BiPAP/CPAP 01/22/19 01/22/19 07:00 07:05 Temp 97.9 97.9 Pulse 86 Resp 18 B/P (MAP) 143/76 (98) Pulse Ox 92 96 O2 Delivery BiPAP/CPAP Room Air Intake and Output 01/21/19 01/21/19 01/22/19 14:59 22:59 06:59 Intake Total 820 ml 850 ml 1150 ml Output Total 350 ml 350 ml Balance 820 ml 500 ml 800 ml LUCIAN SANTANA MD Jan 22, 2019 10:50
[2019-01-22 11:00] VITALS: BP 141/75
[2019-01-22 15:00] VITALS: BP 130/71
--- NOTE | 2019-01-22 16:05 | NUR ---
SW following pt for dc planning. Pt is from home and ID following. No dc recommendation noted at this time.
[2019-01-22 19:00] VITALS: BP 146/85
[2019-01-22] MEDS: LINEZOLID 600 MG TABLET PO SCH (21:13)
[2019-01-22] MEDS: MONTELUKAST SODIUM 10 MG TABLET. PO SCH (21:13)
[2019-01-22 23:00] VITALS: BP 142/83
[2019-01-23] MEDS: MEROPENEM 500 MG in IV NORMAL SALINE 50ML 50 ML IV SCH ×2 (00:04→06:25)
[2019-01-23 03:00] VITALS: BP 155/83
[2019-01-23] MEDS: LEVOTHYROXINE 25 MCG TABLET. PO SCH (06:25)
[2019-01-23] MEDS: IPRATRPIUM/ALBUTEROL 0.5/2.5MG 3 ML NEBU. NEB SCH ×4 (07:07→20:47)
[2019-01-23] MEDS: BUDESONIDE 0.5 MG/2 ML NEBU. NEB SCH ×2 (07:07→20:47)
[2019-01-23 07:37] VITALS: BP 159/78
[2019-01-23] MEDS: DOXYCYCLINE HYCLATE 100 MG in IV DEXTROSE 5% 100ML 100 ML IV SCH (08:06)
[2019-01-23] MEDS: THIAMINE IM 200 MG/2 ML VIAL. IM SCH (08:06)
[2019-01-23] MEDS: PANTOPRAZOLE 40 MG TABLET.DR. PO SCH (08:07)
[2019-01-23] MEDS: FLUTICASONE 50MCG/NASAL SPRAY 16GM BOTTLE. NS SCH ×2 (08:07→21:37)
[2019-01-23] MEDS: ASPIRIN ENTERIC COATED 325 MG TABLET.DR. PO SCH (08:07)
[2019-01-23] MEDS: LACTOBACILLUS RHAMNOSUS GG 1 CAPSULE. PO SCH ×2 (08:07→21:37)
[2019-01-23] MEDS: LINEZOLID 600 MG TABLET PO SCH ×2 (08:07→21:37)
[2019-01-23] MEDS: TAMSULOSIN 0.4 MG CAP.ER.24H. PO SCH (08:07)
--- NOTE | 2019-01-23 09:23 | PDOC ---
Infectious Disease Note Subjective: Subjective Feels much better Appetite improved Fevers/chills resolved No diarrhea ROS: ROS Negative except for above. Vital Signs: Vital Signs Vital Signs Date Time Temp Pulse Resp B/P (MAP) Pulse Ox O2 Delivery O2 Flow Rate FiO2 01/23/19 07:37 98.1 78 14 159/78 (105) 94 Room Air 98.1 Physical Exam: PHYSICAL EXAM GENERAL: Propped up in bed, alert, smiling HEENT: Pupils equally round, reactive. Normal conjunctivae. Oropharynx pink and moist. NECK: Supple. LUNGS: Clear to auscultation. HEART: S1, S2. ABDOMEN: Soft, nontender with bowel sounds present. EXTREMITIES: No gross edema or cyanosis. Third, fourth and fifth left toes less swollen and bruised. Wiggles toes without difficulty. DP palpable SKIN: Warm without signs of rash. About a 3 cm area of redness, induration and a small abscess, right groin, nontender. - improved NEUROLOGIC: Alert, answers questions appropriately Medications: Inpatient Meds: Current Medications Medications (Trade) Dose Ordered Sig/Do Start Time Stop Time Status Last Admin Dose Admin Acetaminophen (Tylenol) 650 mg PRN Q6HRS PRN 01/20/19 12:15 01/22/19 04:15 650 MG Albuterol/ Ipratropium (Duoneb) 3 ml RTQID 01/20/19 16:00 01/23/19 07:07 3 ML Aspirin (Ecotrin) 325 mg DAILY 01/20/19 13:00 01/23/19 08:07 325 MG Budesonide (Pulmicort) 0.5 mg RTBID 01/20/19 20:00 01/23/19 07:07 0.5 MG Ceftriaxone Sodium (Rocephin) 1 gm 1X ONCE 01/20/19 04:00 01/20/19 04:01 DC 01/20/19 04:13 1 GM Doxycycline Hyclate 100 mg/ Dextrose 100 ml @ 50 mls/hr Q12HR 01/20/19 21:00 01/23/19 08:06 50 MLS/HR Fentanyl Citrate (Fentanyl 2ml Vial) 50 mcg PRN Q1HR PRN 01/20/19 03:45 01/21/19 03:44 DC Fluticasone Propionate (Flonase) 2 spray BID 01/22/19 21:30 01/23/19 08:07 2 SPRAY Lactobacillus Rhamnosus (Culturelle) 1 cap BID 01/21/19 21:00 01/23/19 08:07 1 CAP Levothyroxine Sodium (Synthroid) 25 mcg DAILY06 01/20/19 13:00 01/23/19 06:25 25 MCG Linezolid (Zyvox) 600 mg BID 01/22/19 21:00 01/23/19 08:07 600 MG Meropenem 500 mg/ Sodium Chloride 50 ml @ 100 mls/hr Q6HRS 01/20/19 19:00 01/23/19 06:25 100 MLS/HR Montelukast Sodium (Singulair) 10 mg HS 01/20/19 21:00 01/22/19 21:13 10 MG Non-Formulary Medication (Budesonide/ Formoterol Fumarate (Symbicort 80-4.5 Mcg Inhaler)) 2 puff BID 01/20/19 21:00 01/20/19 21:00 DC Non-Formulary Medication (Tiotropium [place] (Spiriva)) 1 cap DAILY 01/21/19 09:00 01/21/19 09:00 DC Pantoprazole Sodium (Protonix) 40 mg DAILYAC 01/20/19 13:00 01/23/19 08:07 40 MG Sodium Chloride 500 ml @ 500 mls/hr 1X ONCE 01/20/19 04:30 01/20/19 05:29 DC 01/20/19 04:26 500 MLS/HR Tamsulosin HCl (Flomax) 0.4 mg DAILY 01/20/19 13:00 01/23/19 08:07 0.4 MG Thiamine HCl 100 mg DAILY 01/20/19 16:45 01/23/19 09:01 DC 01/23/19 08:06 100 MG Vancomycin HCl (Vanco Per Pharmacy) 1 each PRN DAILY PRN 01/20/19 03:45 01/22/19 11:16 DC 01/21/19 19:36 1 EACH Vancomycin HCl (Vancomycin Trough Level) 1 each 1X ONCE 01/22/19 19:30 01/22/19 19:31 Cancel Vancomycin HCl 1.25 gm/Sodium Chloride 250 ml @ 167 mls/hr Q8H 01/21/19 20:00 01/22/19 11:14 DC 01/22/19 03:54 167 MLS/HR Vancomycin HCl 2 gm/Sodium Chloride 500 ml @ 250 mls/hr 1X ONCE 01/20/19 05:00 01/20/19 06:59 DC 01/20/19 06:17 250 MLS/HR Objective: Assessment: Fever of 103 previously ( Not recorded) n ow pattern improving Cellulitis and abscess right groin area - U/S - neg Tick bite -[facility] a week ago -has a [place] in [place], [place] and a home on 1/2 acr [facility] Leukocytosis - better Left foot injury 10 days prior to admission ,improving h/o alcohol Asthma Thrombocytopenia Plan: Plan of Care Continue doxycycline cont zyvox DC Merrem start Zosyn Probiotics BC neg so far Ehrlichiosis/rickettsia tests unavailable Monitor labs/temp and renal function closely CPK up 666 (566) D/w D/w nursing NICOLLE NARAYAN MD Jan 23, 2019 09:23
[2019-01-23 11:12] VITALS: BP 160/75
--- NOTE | 2019-01-23 11:50 | PDOC ---
[facility] PROGRESS NOTE Chief Complaint Chief Complaint Cellulitis and abscess, right groin area - on empiric antibiotics, doxy, rocephin, vancomycin, still with fevers now per nursing staff. Will give tylenol prn. Consulted ID. Negative US groin Tick bite - uncertain if he completely removed it. We cannot check lyme titers at our facility Sepsis - with leukocytosis, fever, tachycardia and abscess in groin, given empiric IVF and antibiotics Acute encephalopathy - likely related to sepsis, however early onset dementia has been documented in his medical record. Based on CT head and gait instability and urinary incontinence I have consulted neurology to evaluate for Normal Pressure Hydrocephalus Gait instability - was his chief complaint. Resolved Urinary incontinence - possibly part of NPH, resolved Left foot injury - able to bear weight, low suspicion for fracture. Pain control BRENNA on CPAP - cont inpatient nightly History of Present Illness History of Present Illness 7�11�2019 Patient seen and examined discussed with RN and case management ID notes reviewed Mr Leonard is a 58 yo male w/ PMHx asthma who presents with dizziness and weakness with a fall. His reports she heard him wake up around 130 am and subsequently heard a loud fall from the patient falling and hitting the bathroom tub. He is unsure if he lost consciousness or not. His states that a large puddle of urine was next to his bed that occurred shortly before his fall. He also reports a feeling of profound weakness which is really his only complaint with me. All other history is through ROS. For 10 days (01/08-01/17) the patient was at [facility] with friends drinking alcohol and outdoor recreation activities. The patients and daughter noted, and he confirmed that he had found a tick in his right groin region and removed it this past Sunday (January 18 2019). He notes the tick was large and black in color and engorged when it burst and he feels in the shower he removed it successfully and washed the remainder down the drain. The next day (Friday 01/19) he complained to his of pain at the site of his tick bite with associated fever, chills, body aches and severe fatigue with a mild headache and confusion. He denies chest pain, shortness of breath, visual changes, and sick contacts. He said his and friend told him he was not acting himself. In ED he was febrile with elevated WBC 13.4K with lactic 2.5. Head CT showed no acute intracranial abnormality. Cultures have been ordered. He was given a one-time dose of doxycycline and ceftriaxone and vancomycin. He says he stubbed his left toes on a ladder on a pontoon boat and has some pain there as well. 01/21: Overnight much less confused. He feels his right groin abscess is "coming to a head". US of right groin shows no large fluid collection, confirms lymphadenopathy. Overnight slept well on home CPAP. He is asking about discharge timing and final diagnosis. [place] like manipulation of his wound yesterday removed the head of the tick. Oriented today. Has generalized weakness and now notes bilateral elbow and wrist pain and knee pains. He also still has a headache. Vitals/I&O Vitals/I&O: Vital Signs Date Time Temp Pulse Resp B/P (MAP) Pulse Ox O2 Delivery O2 Flow Rate FiO2 01/23/19 11:16 Room Air 01/23/19 07:37 98.1 78 14 159/78 (105) 94 98.1 I & O 01/22/19 01/22/19 01/23/19 15:00 23:00 07:00 Intake Total 560 ml 1360 ml 150 ml Output Total 2 ml 600 ml Balance 560 ml 1358 ml -450 ml Physical Exam Physical Exam: GENERAL: Propped up in bed, alert, smiling HEENT: Pupils equally round, reactive. Normal conjunctivae. Oropharynx pink and moist. NECK: Supple. LUNGS: Clear to auscultation. HEART: S1, S2. ABDOMEN: Soft, nontender with bowel sounds present. EXTREMITIES: No gross edema or cyanosis. Third, fourth and fifth left toes less swollen and bruised. Wiggles toes without difficulty. DP palpable SKIN: Warm without signs of rash. About a 3 cm area of redness, induration and a small abscess, right groin, nontender. - improved NEUROLOGIC: Alert, answers questions appropriately General: Alert, Cooperative, No acute distress Heart: Regular rate, Normal S1, Normal S2 Lungs: Clear Abdomen: Normal bowel sounds, Soft, No tenderness, No hepatosplenomegaly, No masses Extremities: No clubbing, No cyanosis, No edema, Normal pulses, No tenderness/swelling Skin: Other (Right groin with fluctuant mass with surrounding erythema. Left toes black and blue) Assessment and Plan Assessmemt and Plan Problems Medical Problems: (1) Acute encephalopathy Status: Acute (2) Cellulitis of right groin Status: Acute (3) Injury of left foot Status: Acute (4) Metabolic encephalopathy Status: Acute (5) Sepsis Status: Acute Sepsis after tick bite on right groin Plan IV antibiotic's per ID Wound care Full code PT OT DVT prophylaxis Per infectious disease please see below notes Plan of Care Continue doxycycline cont zyvox DC Merrem start Zosyn Probiotics BC neg so far Ehrlichiosis/rickettsia tests unavailable Monitor labs/temp and renal function closely CPK up 666 (566) Comment Review of Relevant I have reviewed the following items darwin (where applicable) has been applied. Medications: Current Medications Medications (Trade) Dose Ordered Sig/Do Route PRN Reason Start Time Stop Time Status Last Admin Dose Admin Linezolid (Zyvox) 600 mg BID PO 01/22/19 21:00 01/23/19 08:07 Fluticasone Propionate (Flonase) 2 spray BID NS 01/22/19 21:30 01/23/19 08:07 TUNG MOLINA III DO Jan 23, 2019 11:50
[2019-01-23] MEDS: PIPERACILLIN/TAZOBACTAM 3.375 GM in IV NORMAL SALINE 50ML 50 ML IV SCH ×2 (12:00→17:21)
[2019-01-23 15:00] VITALS: BP 135/79
[2019-01-23 19:00] VITALS: BP 137/73
[2019-01-23] MEDS: DOXYCYCLINE HYCLATE 100 MG TABLET PO SCH (21:37)
[2019-01-23] MEDS: MONTELUKAST SODIUM 10 MG TABLET. PO SCH (21:37)
[2019-01-23 22:31] VITALS: BP 145/81
[2019-01-24] MEDS: PIPERACILLIN/TAZOBACTAM 3.375 GM in IV NORMAL SALINE 50ML 50 ML IV SCH ×2 (00:01→05:40)
[2019-01-24 02:49] VITALS: BP 123/73
[2019-01-24] MEDS: LEVOTHYROXINE 25 MCG TABLET. PO SCH (05:40)
[2019-01-24 07:00] VITALS: BP 147/74
[2019-01-24] MEDS: BUDESONIDE 0.5 MG/2 ML NEBU. NEB SCH (07:31)
[2019-01-24] MEDS: IPRATRPIUM/ALBUTEROL 0.5/2.5MG 3 ML NEBU. NEB SCH ×2 (07:31→11:52)
--- NOTE | 2019-01-24 08:05 | PDOC ---
PROGRESS NOTES Chief Complaint Chief Complaint Cellulitis and abscess, right groin area - on empiric antibiotics, doxy, rocephin, vancomycin, still with fevers now per nursing staff. Will give tylenol prn. Consulted ID. Negative US groin Tick bite - uncertain if he completely removed it. We cannot check lyme titers at our facility Sepsis - with leukocytosis, fever, tachycardia and abscess in groin, given empiric IVF and antibiotics Acute encephalopathy - likely related to sepsis, however early onset dementia has been documented in his medical record. Based on CT head and gait instability and urinary incontinence I have consulted neurology to evaluate for Normal Pressure Hydrocephalus Gait instability - was his chief complaint. Resolved Urinary incontinence - possibly part of NPH, resolved Left foot injury - able to bear weight, low suspicion for fracture. Pain control BRENNA on CPAP - cont inpatient nightly History of Present Illness History of Present Illness Mr Leonard is a 58 yo male w/ PMHx asthma who presents with dizziness and weakness with a fall. His reports she heard him wake up around 130 am and subsequently heard a loud fall from the patient falling and hitting the bathroom tub. He is unsure if he lost consciousness or not. His states that a large puddle of urine was next to his bed that occurred shortly before his fall. He also reports a feeling of profound weakness which is really his only complaint with me. All other history is through ROS. For 10 days (01/08-01/17) the patient was at [facility] with friends drinking alcohol and outdoor recreation activities. The patients and daughter noted, and he confirmed that he had found a tick in his right groin region and removed it this past Sunday (January 18 2019). He notes the tick was large and black in color and engorged when it burst and he feels in the shower he removed it successfully and washed the remainder down the drain. The next day (Friday 01/19) he complained to his of pain at the site of his tick bite with associated fever, chills, body aches and severe fatigue with a mild headache and confusion. He denies chest pain, shortness of breath, visual changes, and sick contacts. He said his and friend told him he was not acting himself. In ED he was febrile with elevated WBC 13.4K with lactic 2.5. Head CT showed no acute intracranial abnormality. Cultures have been ordered. He was given a one-time dose of doxycycline and ceftriaxone and vancomycin. He says he stubbed his left toes on a ladder on a pontoon boat and has some pain there as well. 01/21-01/23: Overnight much less confused, used home CPAP. He feels his right groin abscess is "coming to a head". US of right groin shows no large fluid collection, confirms lymphadenopathy. Weakness and bilateral joint pains daily improving. Changed to Zyvox, Doxy, and IV Zosyn. Overnight slept well on home CPAP. He is asking about discharge timing and final diagnosis. [place] like manipulation of his wound removed the head of the tick. Oriented today. Has generalized weakness and now notes bilateral elbow and wrist pain and knee pains. He also still has a headache. Overall he feels like he can go, dressed to leave. D/W 10 days of doxy, zyvox, and augmentin on d/c will cost him $40 out of pocket. Vitals Vitals Vital Signs Date Time Temp Pulse Resp B/P (MAP) Pulse Ox O2 Delivery O2 Flow Rate FiO2 01/24/19 07:33 94 Room Air 01/24/19 02:49 98.0 59 20 123/73 (90) 98.0 Physical Exam Physical Exam GENERAL: Propped up in bed, alert, smiling HEENT: Pupils equally round, reactive. Normal conjunctivae. Oropharynx pink and moist. NECK: Supple. LUNGS: Clear to auscultation. HEART: S1, S2. ABDOMEN: Soft, nontender with bowel sounds present. EXTREMITIES: No gross edema or cyanosis. Third, fourth and fifth left toes less swollen and bruised. Wiggles toes without difficulty. DP palpable SKIN: Warm without signs of rash. About a 3 cm area of redness, induration and a small abscess, right groin, nontender. - improved NEUROLOGIC: Alert, answers questions appropriately General: Alert, Cooperative, No acute distress Heart: Regular rate, Normal S1, Normal S2 Lungs: Clear Abdomen: Normal bowel sounds, Soft, No tenderness, No hepatosplenomegaly, No masses Extremities: No clubbing, No cyanosis, No edema, Normal pulses, No tenderness/swelling Skin: Other (Right groin with fluctuant mass with surrounding erythema. Left toes black and blue) Assessment and Plan Assessmemt and Plan Problems Medical Problems: (1) Acute encephalopathy Status: Acute (2) Cellulitis of right groin Status: Acute (3) Injury of left foot Status: Acute (4) Metabolic encephalopathy Status: Acute (5) Sepsis Status: Acute Comment Review of Relevant I have reviewed the following items darwin (where applicable) has been applied. Labs Microbiology 01/20/19 Blood Culture - Preliminary, Resulted NO GROWTH AFTER 4 DAYS Medications Current Medications Sodium Chloride 1,000 ml @ 1,000 mls/hr 1X ONCE IV Last administered on 01/20/19at 03:06; Start 01/20/19 at 03:15; Stop 01/20/19 at 04:14; Status DC Ceftriaxone Sodium (Rocephin) 1 gm 1X ONCE IVP Last administered on 01/20/19at 04:13; Start 01/20/19 at 04:00; Stop 01/20/19 at 04:01; Status DC Doxycycline Hyclate 100 mg/ Dextrose 100 ml @ 50 mls/hr 1X ONCE IV Last administered on 01/20/19at 04:14; Start 01/20/19 at 04:00; Stop 01/20/19 at 05:59; Status DC Vancomycin HCl (Vanco Per Pharmacy) 1 each PRN DAILY PRN MC SEE COMMENTS Last administered on 01/21/19at 19:36; Start 01/20/19 at 03:45; Stop 01/22/19 at 11:16; Status DC Sodium Chloride 1,000 ml @ 1,000 mls/hr 1X ONCE IV Last administered on 01/20/19at 04:05; Start 01/20/19 at 04:00; Stop 01/20/19 at 04:59; Status DC Acetaminophen (Tylenol) 1,000 mg 1X ONCE PO Last administered on 01/20/19at 04:09; Start 01/20/19 at 04:00; Stop 01/20/19 at 04:01; Status DC Fentanyl Citrate (Fentanyl 2ml Vial) 50 mcg PRN Q1HR PRN IV SEVERE PAIN 7-10; Start 01/20/19 at 03:45; Stop 01/21/19 at 03:44; Status DC Sodium Chloride 1,000 ml @ 100 mls/hr Q10H IV Last administered on 01/21/19at 18:12; Start 01/20/19 at 05:00; Stop 01/21/19 at 04:59; Status DC Vancomycin HCl 2 gm/Sodium Chloride 500 ml @ 250 mls/hr 1X ONCE IV Last ad ministered on 01/20/19 06:17; Start 01/20/19 at 05:00; Stop 01/20/19 at 06:59; Status DC Sodium Chloride 500 ml @ 500 mls/hr 1X ONCE IV Last administered on 01/20/19at 04:26; Start 01/20/19 at 04:30; Stop 01/20/19 at 05:29; Status DC Vancomycin HCl 1.25 gm/Sodium Chloride 250 ml @ 167 mls/hr Q12H IV Last administered on 01/21/19at 06:58; Start 01/20/19 at 19:00; Stop 01/21/19 at 19:22; Status DC Vancomycin HCl (Vancomycin Trough Level) 1 each 1X ONCE MC Last administered on 01/21/19at 18:30; Start 01/21/19 at 18:30; Stop 01/21/19 at 18:31; Status DC Acetaminophen (Tylenol) 650 mg PRN Q6HRS PRN PO FEVER > 102 Last administered on 01/22/19 04:15; Start 01/20/19 at 12:15 Aspirin (Ecotrin) 325 mg DAILY PO Last administered on 01/23/19 08:07; Start 01/20/19 at 13:00 Albuterol/ Ipratropium (Duoneb) 3 ml QID IH ; Start 01/20/19 at 13:00; Stop 01/20/19 at 13:00; Status DC Montelukast Sodium (Singulair) 10 mg HS PO Last administered on 01/23/19at 21:37; Start 01/20/19 at 21:00 Tamsulosin HCl (Flomax) 0.4 mg DAILY PO Last administered on 01/23/19 08:07; Start 01/20/19 at 13:00 Non-Formulary Medication (Budesonide/ Formoterol Fumarate (Symbicort 80-4.5 Mcg Inhaler)) 2 puff BID IH ; Start 01/20/19 at 21:00; Stop 01/20/19 at 21:00; Status DC Fluticasone Propionate (Flonase) 2 spray DAILY NS Last administered on 01/22/19at 09:00; Start 01/20/19 at 13:00; Stop 01/22/19 at 21:20; Status DC Levothyroxine Sodium (Synthroid) 25 mcg DAILY06 PO Last administered on 01/24/19at 05:40; Start 01/20/19 at 13:00 Pantoprazole Sodium (Protonix) 40 mg DAILYAC PO Last administered on 01/23/19at 08:07; Start 01/20/19 at 13:00 Non-Formulary Medication (Tiotropium [place] (Spiriva)) 1 cap DAILY IH ; Start 01/21/19 at 09:00; Stop 01/21/19 at 09:00; Status DC Albuterol/ Ipratropium (Duoneb) 3 ml RTQID NEB Last administered on 01/24/19 07:31; Start 01/20/19 at 16:00 Budesonide (Pulmicort) 0.5 mg RTBID NEB Last administered on 01/24/19at 07:31; Start 01/20/19 at 20:00 Doxycycline Hyclate 100 mg/ Dextrose 100 ml @ 50 mls/hr Q12HR IV ; Start 01/20/19 at 14:00; Status Cancel Doxycycline Hyclate 100 mg/ Dextrose 100 ml @ 50 mls/hr Q12HR IV Last administered on 01/23/19 08:06; Start 01/20/19 at 21:00; Stop 01/23/19 at 10:03; Status DC Thiamine HCl 100 mg DAILY IM Last administered on 01/23/19at 08:06; Start 01/20/19 at 16:45; Stop 01/23/19 at 09:01; Status DC Meropenem 500 mg/ Sodium Chloride 50 ml @ 100 mls/hr Q6HRS IV Last admini stered on 01/23/19at 06:25; Start 01/20/19 at 19:00; Stop 01/23/19 at 10:03; Status DC Lactobacillus Rhamnosus (Culturelle) 1 cap BID PO Last administered on 01/23/19at 21:37; Start 01/21/19 at 21:00 Vancomycin HCl 1.25 gm/Sodium Chloride 250 ml @ 167 mls/hr Q8H IV Last administered on 01/22/19at 03:54; Start 01/21/19 at 20:00; Stop 01/22/19 at 11:14; Status DC Vancomycin HCl (Vancomycin Trough Level) 1 each 1X ONCE MC ; Start 01/22/19 at 19:30; Stop 01/22/19 at 19:31; Status Cancel Linezolid (Zyvox) 600 mg BID PO Last administered on 01/23/19at 21:37; Start 01/22/19 at 21:00 Fluticasone Propionate (Flonase) 2 spray BID NS Last administered on 01/23/19at 21:37; Start 01/22/19 at 21:30 Piperacillin Sod/ Tazobactam Sod 3.375 gm/Sodium Chloride 50 ml @ 100 mls/hr Q6HRS IV Last administered on 01/24/19at 05:40; Start 01/23/19 at 12:00 Doxycycline Hyclate (Vibra-Tab) 100 mg BID PO Last administered on 01/23/19at 21:37; Start 01/23/19 at 21:00 Active Scripts Active Reported Montelukast Sodium Tablet (Montelukast Sodium) 10 Mg Tablet 10 Mg PO HS Flonase Allergy Relief (Fluticasone Propionate) 9.9 Ml [place].susp 2 Sprays NS DAILY Aspirin Ec (Aspirin) 325 Mg Tablet.dr 1 Tab PO DAILY Levothyroxine Sodium 25 Mcg Tablet 1 Tab PO DAILY Spiriva (Tiotropium [place]) 18 Mcg Cap.w.dev 1 Cap IH DAILY Symbicort 80-4.5 Mcg Inhaler (Budesonide/Formoterol Fumarate) 10.2 Gm Hfa.aer.ad 2 Puff IH BID Omeprazole 40 Mg Capsule.dr 1 Cap PO DAILY Vitamin E (Vitamin E Acetate) 1,000 Unit Capsule 1,000 Unit PO Co Q-10 (Ubidecarenone) 100 Mg Capsule 100 Mg PO Fish Oil ([place]-3 Fatty Acids) 500 Mg Capsule 1,000 Mg PO Tamsulosin Hcl 0.4 Mg Cap.er.24h 1 Cap PO DAILY Duoneb 0.5-3(2.5) Mg/3 Ml (Albuterol/Ipratropium) 3 Ml Ampul.neb 3 Ml IH Vitals/I & O Vital Sign - Last 24 Hours 01/23/19 01/23/19 01/23/19 01/23/19 11:12 11:16 15:00 15:19 Temp 97.7 97.9 97.7 97.9 Pulse 71 69 Resp 20 16 B/P (MAP) 160/75 (103) 135/79 (97) Pulse Ox 95 95 97 O2 Delivery Room Air Room Air Room Air Room Air 01/23/19 01/23/19 01/23/19 01/24/19 19:00 20:44 22:31 02:49 Temp 98.5 97.9 98.0 98.5 97.9 98.0 Pulse 68 72 59 Resp 18 19 20 B/P (MAP) 137/73 (94) 145/81 (102) 123/73 (90) Pulse Ox 96 97 96 O2 Delivery Room Air Room Air Room Air BiPAP/CPAP 01/24/19 07:33 Pulse Ox 94 O2 Delivery Room Air Intake and Output 01/23/19 01/23/19 01/24/19 15:00 23:00 07:00 Intake Total 600 ml 950 ml Balance 600 ml 950 ml SOFY BARKER MD Jan 24, 2019 08:05
--- NOTE | 2019-01-24 08:25 | PDOC ---
Infectious Disease Note Subjective: Subjective Feels much better Appetite improved Fevers/chills resolved had one loose bm but then one formed eager for dc home today ROS: ROS Negative except for above. Vital Signs: Vital Signs Vital Signs Date Time Temp Pulse Resp B/P (MAP) Pulse Ox O2 Delivery O2 Flow Rate FiO2 01/24/19 07:33 94 Room Air 01/24/19 02:49 98.0 59 20 123/73 (90) 98.0 Physical Exam: PHYSICAL EXAM GENERAL: Propped up in bed, alert, smiling HEENT: Pupils equally round, reactive. Normal conjunctivae. Oropharynx pink and moist. NECK: Supple. LUNGS: Clear to auscultation. HEART: S1, S2. ABDOMEN: Soft, nontender with bowel sounds present. EXTREMITIES: No gross edema or cyanosis. Third, fourth and fifth left toes less swollen and bruised. Wiggles toes without difficulty. DP palpable SKIN: Warm without signs of rash. About a 3 cm area of redness, induration and a small abscess, right groin, nontender. - improved NEUROLOGIC: Alert, answers questions appropriately Medications: Inpatient Meds: Current Medications Medications (Trade) Dose Ordered Sig/Do Start Time Stop Time Status Last Admin Dose Admin Acetaminophen (Tylenol) 650 mg PRN Q6HRS PRN 01/20/19 12:15 01/22/19 04:15 650 MG Albuterol/ Ipratropium (Duoneb) 3 ml RTQID 01/20/19 16:00 01/24/19 07:31 3 ML Aspirin (Ecotrin) 325 mg DAILY 01/20/19 13:00 01/23/19 08:07 325 MG Budesonide (Pulmicort) 0.5 mg RTBID 01/20/19 20:00 01/24/19 07:31 0.5 MG Ceftriaxone Sodium (Rocephin) 1 gm 1X ONCE 01/20/19 04:00 01/20/19 04:01 DC 01/20/19 04:13 1 GM Doxycycline Hyclate (Vibra-Tab) 100 mg BID 01/23/19 21:00 01/23/19 21:37 100 MG Doxycycline Hyclate 100 mg/ Dextrose 100 ml @ 50 mls/hr Q12HR 01/20/19 21:00 01/23/19 10:03 DC 01/23/19 08:06 50 MLS/HR Fentanyl Citrate (Fentanyl 2ml Vial) 50 mcg PRN Q1HR PRN 01/20/19 03:45 01/21/19 03:44 DC Fluticasone Propionate (Flonase) 2 spray BID 01/22/19 21:30 01/23/19 21:37 2 SPRAY Lactobacillus Rhamnosus (Culturelle) 1 cap BID 01/21/19 21:00 01/23/19 21:37 1 CAP Levothyroxine Sodium (Synthroid) 25 mcg DAILY06 01/20/19 13:00 01/24/19 05:40 25 MCG Linezolid (Zyvox) 600 mg BID 01/22/19 21:00 01/23/19 21:37 600 MG Meropenem 500 mg/ Sodium Chloride 50 ml @ 100 mls/hr Q6HRS 01/20/19 19:00 01/23/19 10:03 DC 01/23/19 06:25 100 MLS/HR Montelukast Sodium (Singulair) 10 mg HS 01/20/19 21:00 01/23/19 21:37 10 MG Non-Formulary Medication (Budesonide/ Formoterol Fumarate (Symbicort 80-4.5 Mcg Inhaler)) 2 puff BID 01/20/19 21:00 01/20/19 21:00 DC Non-Formulary Medication (Tiotropium [place] (Spiriva)) 1 cap DAILY 01/21/19 09:00 01/21/19 09:00 DC Pantoprazole Sodium (Protonix) 40 mg DAILYAC 01/20/19 13:00 01/23/19 08:07 40 MG Piperacillin Sod/ Tazobactam Sod 3.375 gm/Sodium Chloride 50 ml @ 100 mls/hr Q6HRS 01/23/19 12:00 01/24/19 05:40 100 MLS/HR Sodium Chloride 500 ml @ 500 mls/hr 1X ONCE 01/20/19 04:30 01/20/19 05:29 DC 01/20/19 04:26 500 MLS/HR Tamsulosin HCl (Flomax) 0.4 mg DAILY 01/20/19 13:00 01/23/19 08:07 0.4 MG Thiamine HCl 100 mg DAILY 01/20/19 16:45 01/23/19 09:01 DC 01/23/19 08:06 100 MG Vancomycin HCl (Vanco Per Pharmacy) 1 each PRN DAILY PRN 01/20/19 03:45 01/22/19 11:16 DC 01/21/19 19:36 1 EACH Vancomycin HCl (Vancomycin Trough Level) 1 each 1X ONCE 01/22/19 19:30 01/22/19 19:31 Cancel Vancomycin HCl 1.25 gm/Sodium Chloride 250 ml @ 167 mls/hr Q8H 01/21/19 20:00 01/22/19 11:14 DC 01/22/19 03:54 167 MLS/HR Vancomycin HCl 2 gm/Sodium Chloride 500 ml @ 250 mls/hr 1X ONCE 01/20/19 05:00 01/20/19 06:59 DC 01/20/19 06:17 250 MLS/HR Labs: Micro BC neg Objective: Assessment: Fever of 103 previously ( Not recorded) n ow pattern improving Cellulitis and abscess right groin area - U/S - neg Tick bite -[facility] [place] a week ago -has a [place] in [place], [place] and a home on [address] [facility] Leukocytosis - better Left foot injury 10 days prior to admission ,improving h/o alcohol Asthma Thrombocytopenia Plan: Plan of Care Pt is eager for dc home today doxycycline and zyvox for 10 days, SW to assist with zyvox scripts augmentin on dc home for 10 days Probiotics Ehrlichiosis/rickettsia tests unavailable local care f/u with pcp f/u id clinic if needed D/w nursing NICOLLE NARAYAN MD Jan 24, 2019 08:25
[2019-01-24] MEDS: PANTOPRAZOLE 40 MG TABLET.DR. PO SCH (08:49)
[2019-01-24] MEDS: LACTOBACILLUS RHAMNOSUS GG 1 CAPSULE. PO SCH (08:49)
[2019-01-24] MEDS: DOXYCYCLINE HYCLATE 100 MG TABLET PO SCH (08:50)
[2019-01-24] MEDS: LINEZOLID 600 MG TABLET PO SCH (08:50)
[2019-01-24] MEDS: TAMSULOSIN 0.4 MG CAP.ER.24H. PO SCH (08:50)
[2019-01-24] MEDS: FLUTICASONE 50MCG/NASAL SPRAY 16GM BOTTLE. NS SCH (08:51)
[2019-01-24] MEDS: ASPIRIN ENTERIC COATED 325 MG TABLET.DR. PO SCH (10:08)
--- NOTE | 2019-01-24 10:40 | NUR ---
Called in Rx to Emily at [facility] at the [facility].
[2019-01-24 11:00] VITALS: BP 155/81
[2019-01-24] MEDS ORDERED: LACT1CAP19 PO (11:48)
[2019-01-24] MEDS ORDERED: LINE600T PO (11:48)
[2019-01-24] MEDS ORDERED: DOXY100T PO (11:48)
[2019-01-24] MEDS ORDERED: AMOX1TAB61 PO (11:48)
--- NOTE | 2019-01-24 11:52 | PDOC3 ---
Discharge Summary Visit Information Date of Admission: Jan 20, 2019 Date of Discharge: Jan 24, 2019 Admitting Diagnosis: Cellulitis of right groin, confusion Final Diagnosis Problems Medical Problems: (1) Acute encephalopathy Status: Acute (2) Cellulitis of right groin Status: Acute (3) Injury of left foot Status: Acute (4) Metabolic encephalopathy Status: Acute (5) Sepsis Status: Acute Brief Hospital Course Allergies Allergies Coded Allergies Type Severity Reaction Last Updated Verified aspirin Allergy Severe Hives 08/25/15 Yes ibuprofen Allergy Severe Hives 08/25/15 Yes Vital Signs Vital Signs Date Time Temp Pulse Resp B/P (MAP) Pulse Ox O2 Delivery O2 Flow Rate FiO2 01/24/19 08:00 Room Air 01/24/19 07:33 94 01/24/19 07:00 98.0 67 18 147/74 (98) 98.0 Brief Hospital Course Mr Leonard is a 58 yo male w/ PMHx asthma who presents with dizziness and weakness with a fall. His reports she heard him wake up around 130 am and subsequently heard a loud fall from the patient falling and hitting the bathroom tub. He is unsure if he lost consciousness or not. His states that a large puddle of urine was next to his bed that occurred shortly before his fall. He also reports a feeling of profound weakness which is really his only complaint with me. All other history is through [facility]. For 10 days (01/08-01/17) the patient was at [facility] with friends drinking alcohol and outdoor recreation activities. The patients and daughter noted, and he confirmed that he had found a tick in his right groin region and removed it this past Sunday (January 18 2019). He notes the tick was large and black in color and engorged when it burst and he feels in the shower he removed it successfully and washed the remainder down the drain. The next day (Friday 01/19) he complained to his of pain at the site of his tick bite with associated fever, chills, body aches and severe fatigue with a mild headache and confusion. He denies chest pain, shortness of breath, visual changes, and sick contacts. He said his and friend told him he was not acting himself. In ED he was febrile with elevated WBC 13.4K with lactic 2.5. Head CT showed no acute int racranial abnormality. Cultures have been ordered. He was given a one-time dose of doxycycline and ceftriaxone and vancomycin. He says he stubbed his left toes on a ladder on a pontoon boat and has some pain there as well. 01/21-01/23: Overnight much less confused, used home CPAP. He feels his right groin abscess is "coming to a head". US of right groin shows no large fluid collection, confirms lymphadenopathy. Weakness and bilateral joint pains daily improving. Changed to Zyvox, Doxy, and IV Zosyn. Overnight slept well on home CPAP. He is asking about discharge timing and final diagnosis. [place] like manipulation of his wound removed the head of the tick. Oriented today. Has generalized weakness and now notes bilateral elbow and wrist pain and knee pains. He also still has a headache. Overall he feels like he can go, dressed to leave. D/W 10 days of doxy, zyvox, and augmentin on d/c will cost him $40 out of pocket. Greater than 30 minutes spent on discharge. Cellulitis and abscess, right groin area - on empiric antibiotics, doxy, zyvox, augmentin. Will give tylenol prn. Consulted ID. Negative US groin Tick bite - uncertain if he completely removed it. We cannot check lyme titers at our facility or rickettsia Sepsis - with leukocytosis, fever, tachycardia and abscess in groin, Resolved Acute encephalopathy - likely related to sepsis, however early onset dementia has been documented in his medical record. Based on CT head and gait instability and urinary incontinence I have consulted neurology to evaluate for Normal Pressure Hydrocephalus. RESOLVED Gait instability - was his chief complaint. Resolved Urinary incontinence - possibly part of NPH, resolved Left foot injury - able to bear weight, low suspicion for fracture. Pain control BRENNA on CPAP - cont inpatient nightly Discharge Information Condition at Discharge: Improved Follow Up: Weeks (2) Disposition/Orders: D/C to Home Scheduled Amoxicillin/Potassium Clav (Augmentin 875-125 Tablet) 1 Each Tablet, 1 TAB PO BID for Tick bite, #20 Prescribed by: SOFY BARKER MD on 01/24/19 1148 Aspirin (Aspirin Ec) 325 Mg Tablet., 1 TAB PO DAILY for thinner, #30 Ref 5 (Reported) Entered as Reported by: DOUG SWEET on 01/20/19 0547 Last Action: Continued on 01/20/191206 by SOFY BARKER MD Budesonide/Formoterol Fumarate (Symbicort 80-4.5 Mcg Inhaler) 10.2 Gm Hfa.aer.ad, 2 PUFF IH BID for asthma, #10.2 Ref 5 (Reported) Entered as Reported by: DOUG SWEET on 01/20/19546 Last Action: Converted on 01/20/191206 by SOFY BARKER MD Doxycycline Hyclate (Doxycycline Hyclate) 100 Mg Tablet, 100 MG PO BID for Tick bite for 10 Days, #20 Prescribed by: SOFY BARKER MD on 01/24/19 1148 Fluticasone Propionate (Flonase Allergy Relief) 9.9 Ml [place].susp, 2 SPRAYS NS DAILY for congestion, (Reported) Entered as Reported by: MOOSE TYSON on 01/20/19 104 Last Taken: 1 spray each nostril on 01/20/19 1019 Last Action: Converted on 01/20/191206 by SOFY BARKER MD Lactobacillus Rhamnosus Gg (Culturelle) 1 Each Cap.sprink, 1 CAP PO BID for Diarrhea for 10 Days, #20 Prescribed by: SOFY BARKER MD on 01/24/19 1148 Levothyroxine Sodium (Levothyroxine Sodium) 25 Mcg Tablet, 1 TAB PO DAILY for low thyroid, #30 Ref 5 (Reported) Entered as Reported by: DOUG SWEET on 01/20/19546 Last Action: Converted on 01/20/191206 by SOFY BARKER MD Linezolid (Zyvox) 600 Mg Tablet, 600 MG PO BID for Tick bite for 10 Days, #20 Prescribed by: SOFY BARKER MD on 01/24/19 1148 Montelukast Sodium (Montelukast Sodium Tablet ) 10 Mg Tablet, 10 MG PO HS for FOR ASTHMA, Ref 0 (Reported) Entered as Reported by: MOOSE TYSON on 01/20/19 1046 Last Action: Continued on 01/20/191206 by SOFY BARKER MD Omeprazole (Omeprazole) 40 Mg Capsule.dr, 1 CAP PO DAILY for gerd, #30 Ref 3 (Reported) Entered as Reported by: DOUG SWEET on 01/20/19546 Last Action: Converted on 01/20/191206 by SOFY BARKER MD Tamsulosin Hcl (Tamsulosin Hcl) 0.4 Mg Cap.er.24h, 1 CAP PO DAILY, #30 Ref 5 (Reported) Entered as Reported by: ILEANA RILEY on 08/25/151236 Last Action: Continued on 01/20/191206 by SOFY BARKER MD Tiotropium [place] (Spiriva) 18 Mcg Cap.w.dev, 1 CAP IH DAILY for asthma, #30 Ref 3 (Reported) Entered as Reported by: DOUG SWEET on 01/20/19546 Last Action: Converted on 01/20/191206 by SOFY BARKER MD Miscellaneous Medications Ipratropium/Albuterol Sulfate (Duoneb 0.5-3(2.5) Mg/3 Ml) 3 Ml Ampul.neb, 3 ML IH, (Reported) Entered as Reported by: ILEANA RILEY on 08/25/151236 Last Action: Continued on 01/20/191206 by SOFY BARKER MD [place]-3 Fatty Acids (Fish Oil) 500 Mg Capsule, 1,000 MG PO, (Reported) Entered as Reported by: ILEANA RILEY on 08/25/151236 Last Action: Reviewed on 01/20/19546 by DOUG SWEET Ubidecarenone (Co Q-10) 100 Mg Capsule, 100 MG PO, (Reported) Entered as Reported by: ILEANA DETERDING on 08/25/151236 Last Action: Reviewed on 01/20/19546 by DOUG SWEET Vitamin E Acetate (Vitamin E) 1,000 Unit Capsule, 1,000 UNIT PO, (Reported) Entered as Reported by: ILEANA RILEY on 08/25/151236 Last Action: Reviewed on 01/20/19546 by SOFY NIELSON MD Jan 24, 2019 11:52
--- NOTE | 2019-01-24 13:13 | NUR ---
Discharge Note: VITO VEGA Discharge instructions and discharge home medications reviewed with Patient and a copy given. All questions have been answered and understanding verbalized. The following instructions and handouts were given: patient visit report, medication and education information. Discontinued lines and drains: peripheral IV, tip intact. Patient discharged to home with self care via private vehicle. Patient left unit in stable condition with all personal belongings.
== END 2019-01-24 13:10 | disposition home or self-care (01) | DRG 871 ==
LOC: ER 02:30 → 5 SOUTH 04:34
PROVIDERS: ADMIT Internal Medicine; ATTEND Internal Medicine
PROC: 5A09357 Assistance with Respiratory Ventilation, Less than 24 Consecutive Hours, Continuous Positive Airway Pressure (ICD-10-PCS; principal; 2019-01-20)
PROC: 5A09357 Assistance with Respiratory Ventilation, Less than 24 Consecutive Hours, Continuous Positive Airway Pressure (ICD-10-PCS; 2019-01-21)
DX: A41.9 Sepsis, unspecified organism (principal); G93.41 Metabolic encephalopathy; L02.214 Cutaneous abscess of groin; L03.314 Cellulitis of groin; D69.6 Thrombocytopenia, unspecified; E03.9 Hypothyroidism, unspecified; F03.90 Unspecified dementia, unspecified severity, without behavioral disturbance, psychotic disturbance, mood disturbance, and anxiety; G47.33 Obstructive sleep apnea (adult) (pediatric); J45.909 Unspecified asthma, uncomplicated; W57.XXXA Bitten or stung by nonvenomous insect and other nonvenomous arthropods, initial encounter; K21.9 Gastro-esophageal reflux disease without esophagitis; Z82.49 Family history of ischemic heart disease and other diseases of the circulatory system; Z85.828 Personal history of other malignant neoplasm of skin; Z88.8 Allergy status to other drugs, medicaments and biological substances; Z79.899 Other long term (current) drug therapy; Y92.89 Other specified places as the place of occurrence of the external cause
CPT/HCPCS: 36415; 36600; 70450; 71045; 76881; 80048; 80053; 80202; 80307; 81001; 82550; 82962; 83605; 83690; 83735; 83880; 84484; 85007; 85025; 85027; 85610; 87040; 93005; 94640; 94760; 96361; 96365; 96375; G0480; J0696; J2185; J2543; J3370; J3490; J7030; J7040; J7050; J7620; J7626; 99285-25